=== PATIENT | male | born 1950 | race Two or more races ===

== ENCOUNTER 2022-03-27 16:48 | Observation (INO) ==
--- NOTE | 2022-03-27 20:42 | History & Physical Report ---
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 with concern for choledocholithiasis after originally presenting to OSH with right-sided rib pain due to a mechanical fall. Hyperbilirubinemia, transaminitis, leukocytosis, colorectal carcinoma with liver and lung mets Patient noted with hyperbilirubinemia to 9.2 and AlkPhos of 462 at OSH, in the setting of known liver mets, transferred to [facility] for GI consult and possible MRCP d/t concern for choledocholithiasis CT a/p (performed and read at OSH) notable for extensive hepatic metastatic disease, cholelithiasis; request placed for OSH images to be uploaded and overread by [facility] radiologist in the AM Mild-moderate upper abdominal tenderness on exam On arrival to [facility], labs notable for WBC 73.7, Hgb 9.7, INR 1.7, Ca 7.8 (ion ized pending), phos 1.6, Tbili 9.8, AST 57, AlkPhos 392, albumin 2.7 Lactate level unable to be performed due to lab interference from hyperbilirubinemia Blood cultures drawn prior to antibiotic initiation, result pending GI consulted, recommendations appreciated Oncology consulted, recommendations appreciated Receives chemotherapy every other week (last done about five days ago) managed by a [facility] oncologist Continue empiric vanc/zosyn Trend daily CBC, CMP, PT/INR Rib pain secondary to mechanical fall Patient with mild right-sided chest wall tenderness after a mechanical fall at home yesterday (03/26) No acute fracture identified on imaging at OSH; repeat CXR ordered Pain control with patient's home oxycodone 5mg q6h prn; avoid tylenol d/t hepatic pathology Incentive spirometry ordered Atrial fibrillation Patient tachycardic to the 110s on admission EKG showing atrial fibrillation with RVR without overt sign of ischemia Continue home eliquis, atenolol After admission, patient was still in RVR despite receiving evening dose of atenolol; additional atenolol 100mg x1 given hsTroponin pending Hypophosphatemia Phosphate 1.6 on admission Potassium phosphate monobasic w/ sodium ordered, 1 tab qid Trend phos level HTN BP well-controlled on admission Given the risk of hypotension with the additional atenolol dose (above), will hold home quinapril and lasix for now Continue home spironolactone DM2 Last HbA1c unknown, repeat level ordered Patient's home regimen held on admission Continue BSG checks, sliding-scale insulin, hypoglycemic protocol HLD: not on a statin; lipid profile ordered FERNANDO: not on CPAP/BiPAP at home FEN: NPO at midnight pending GI workup Code status: DNR/DNI DVT ppx: home eliquis Held home meds: lasix, quinapril, metformin, alendronate Consults: gastroenterology, oncology PT/OT: ordered Dispo: med/surg telemetry; low threshold for upgrading to PCU if any instability (2) Colorectal carcinoma: (3) Liver metastases: (4) Lung metastases: (5) Type 2 diabetes mellitus: (6) Atrial fibrillation: (7) Hypertension: (8) Hyperlipidemia: (9) Obstructive sleep apnea: Admission and Anticipated Discharge Date Admission Date: March 27, 2022 History of Present Illness Primary Care Provider: NO PCP 71yo male with a history of colorectal carcinoma with mets to the lung and liver (chemo q other week), atrial fibrillation (on eliquis), HTN, HLD, T2DM, and FERNANDO presents as a transfer from [facility] with concern for choledocholithiasis after originally presenting to OSH with right-sided rib pain due to a mechanical fall. Patient was sitting at the edge of his bed yesterday when he slid down and fell on his right side. No head trauma or LOC. Patient has had right-sided rib pain since. Pain is worse with movement and does not radiate. Some mild pain with inspiration. Also endorses some mild upper abdominal pain which is not new. Denies other symptoms at this time including fever, chills, headache, changes in vision, CP, SOB, nausea, vomiting, co nstipation, diarrhea, lightheadedness, dizziness, numbness, tingling, or weakness. Patient originally presented to [facility], where patient's workup was notable for Tbili of 9.2, AlkP 462, WBC 15, and lactate 2.6. Patient was transferred to [facility] for GI consult and possible MRCP after imaging was suspicious for choledocholithiasis. Patient was placed on vanc/zosyn prior to t ransfer. CT c-spine: no acute fracture US abdomen: heterogenous liver with innumerable hyperechoic masses consistent with mets CT a/p: extensive hepatic metastatic disease, cholelithiasis CT chest: extensive bilateral pulmonary mets, trace BL pleural effusions, scattered ground glass opacities in right perihilar region and right upper lobe which may be related to inflammatory pneumonitis and/or infectious pneumonia CT head: no acute intracranial pathology CXR: diffuse bilateral interstitial and alveolar airspace opacities Patient's current malignancy is managed by an oncologist at [facility]. Allergies Allergy/AdvReac Type Severity Reaction Status Date / Time No Known Allergies Allergy Verified 03/27/22 22:32 Home Medications Medication Instructions Recorded Confirmed Type alendronate 70 mg tablet mg PO 03/27/22 History allopurinol 100 mg tablet mg 03/27/22 History apixaban 5 mg tablet (Eliquis) mg BID 03/27/22 History atenolol 100 mg tablet mg 03/27/22 History esomeprazole magnesium 40 mg mg 03/27/22 History capsule,delayed release furosemide 40 mg tablet mg 03/27/22 History metformin 500 mg tablet,extended mg PO 03/27/22 History release 24 hr oxycodone 5 mg tablet mg 03/27/22 History quinapril 20 mg tablet mg 03/27/22 History spironolactone 25 mg tablet mg 03/27/22 History Past Med/Surg History Social History Smoking Status: Never smoker Hx Alcohol Use: Yes (Quit 2013) Hx Substance Use: No Preferred Language: Frisian Communication Ability: Effective Aerospace Physiological Technician Required: No Beliefs That Will Affect Care: None Current Living Situation: Spouse Feels Safe at Home: Yes Assistive Devices: Walker Physical Exam Physical Exam: Constitutional: well-appearing, no acute distress HEENT: NCAT, mild scleral icterus appreciated CV: tachycardic, irregular rhythm, no murmur appreciated, extremities well- perfused, 1+ pitting edema Resp: CTABL, no wheezes/rales/rhonchi appreciated, no increased work of breathing GI: soft, nondistended, mild-moderate tenderness of the RUQ, LUQ, and epigastrium, no RLQ or LLQ tenderness, BS present MSK: no gross deformities appreciated Skin: warm, dry, no rash appreciated Neuro: alert, oriented, no focal neurologic deficit appreciated Supervising Physician Co-Signing Physician Notes Attending addendum: I have physically seen this patient, have supervised the medical residents activities, and agree with the H&P unless as otherwise noted. Assessment and Plan: Hyperbilirubinemia/transaminitis/metastatic liver disease- Patient accepted in transfer from outside hospital for assessment regarding elevated bilirubin for possible MRCP and concerns regarding choledocholithiasis N.p.o. Significantly elevated white blood cell count 73.7 Follow culture results Empiric antibiotic coverage with vancomycin and Zosyn IV Order MRCP Not likely candidate for surgery, and would likely need a cholecystostomy tube if gallbladder is infected Follow serial laboratories Colorectal carcinoma with metastatic disease to liver and lung- Follows with [facility] [place] oncology Atrial fibrillation with RVR- Optimize potassium magnesium Negative inotropes as noted Giving IV digoxin Continue anticoagulation, changing Eliquis to heparin Remaining orders and notations as noted Resident Activity Tracking Resident Involvement: 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
[2022-03-27] MEDS ORDERED: GLUCOSE 10 TAB/TUBE PO PRN (21:32)
[2022-03-27] MEDS ORDERED: DEXTROSE 50% 50 ML SYRINGE IV PRN (21:32)
[2022-03-27] MEDS ORDERED: CARBOHYDRATES FOR HYPOGLYCEMIA PO PRN (21:32)
[2022-03-27] MEDS ORDERED: GLUCAGON FOR INJ 1 MG VIAL SQ PRN (21:32)
[2022-03-27] MEDS ORDERED: GLUCOSE 40% GEL 15 GM TUBE PO PRN (21:32)
[2022-03-27] MEDS ORDERED: APIXABAN 5 MG TABLET PO SCH (22:00)
[2022-03-27] MEDS ORDERED: Patient's ALLERGY Info needs ENTERED SCH (22:00)
[2022-03-27] MEDS ORDERED: Patient's HEIGHT &/or WEIGHT Needed SCH (22:45)
[2022-03-27] MEDS: ATENOLOL 50 MG TABLET PO SCH (23:32)
[2022-03-27] MEDS: oxyCODONE HCL IR 5 MG TAB (IMMEDIATE RELEASE) PO PRN (23:35)
[2022-03-28 01:22] LABS: INR 1.7 (0.9-1.1); Prothrombin Time 17.2 Seconds (9.0-12.0)
[2022-03-28 01:38] LABS: Albumin Level 2.7 gm/dl (3.4-5.0); BUN Creatinine Ratio 24.3 (10-20); Bilirubin,Total 9.8 mg/dl (0.2-1.0); Calcium 7.8 mg/dl (8.5-10.1); Creatinine Clr Calc Pharmacy 78.8 ml/min; Est GFR (African American) 81.7 ml/min; Est GFR (Non-African American) 70.5 ml/min; Globulin 2.6 gm/dl (2.5-4.0); Magnesium 1.9 mg/dl (1.7-2.4); Phosphorus 1.6 mg/dl (2.5-4.9); Potassium 3.6 mmol/L (3.5-5.1); Total Protein 5.3 gm/dl (6.0-8.3)
[2022-03-28] MEDS ORDERED: ATENOLOL 50 MG TABLET PO ONE (01:39)
[2022-03-28] MEDS ORDERED: LORazepam 1 MG TAB PO STA (01:40)
[2022-03-28] MEDS ORDERED: VANCOMYCIN CONSULT ACTIVE PRN ×2 (01:49)
[2022-03-28 01:50] LABS: Hematocrit (blood only) 30.9 % (42-52); Hemoglobin 9.7 g/dL (14.0-18.0); Mean Corpuscular Hgb Conc 31.4 g/dL (32-36); Mean Corpuscular Volume 89.3 fL (80-100); Mean Platelet Volume 10.2 fL (7.4-10.4); Platelet Count 130 K/uL (130-400); RDW Coefficient of Variation 22.6 % (11.5-14.5); RDW Standard Deviation 71.5 fL (36.4-46.3); Red Blood Count 3.46 M/uL (4.7-6.1); White Blood Count 73.67 K/uL (4.8-10.8)
[2022-03-28 01:51] LABS: Anisocytosis Present; Basophils # (auto) 0.04 K/uL (0-0.2); Basophils % (auto) 0.1 %; Eosinophils # (auto) 0.01 K/uL (0-0.5); Immature Granulocytes # (auto) 3.96 K/uL (0.00-0.02); Immature Granulocytes % (auto) 5.4 %; Lymphocytes # (auto) 0.39 K/uL (1.2-3.4); Lymphocytes % (auto) 0.5 %; Monocytes # (auto) 0.35 K/uL (0.11-0.59); Monocytes % (auto) 0.5 %; Neutrophils # (auto) 68.92 K/uL (1.4-6.5); Neutrophils % (auto) 93.5 %; Platelet Estimate Normal (Normal)
[2022-03-28] MEDS ORDERED: PIPERACILLIN/TAZOBACTAM 3.375 GM in DEXTROSE 5% 100 ML IV SCH (02:00)
[2022-03-28] MEDS ORDERED: HEPARIN 100 UNIT/ML 5ML FLUSH FLUSH PRN (02:14)
[2022-03-28] MEDS ORDERED: VANCOMYCIN HCL 2,250 MG in SODIUM CHLORIDE 0.9% 500 ML IV ONE (02:15)
[2022-03-28] MEDS ORDERED: PIPERACILLIN/TAZOBACTAM 4.5 GM in DEXTROSE 5% 100 ML IV ONE (02:15)
[2022-03-28] MEDS: POT PHOSPHATE MONOBASIC W/ SOD TAB PO SCH ×5 (02:40→20:16)
[2022-03-28] MEDS ORDERED: POTASSIUM CHLORIDE / WTR 10 MEQ/100 ML PLCT IV ONE (04:13)
[2022-03-28] MEDS ORDERED: POTASSIUM CHLORIDE CRTAB 20 MEQ TABCR PO STA (04:13)
[2022-03-28] MEDS ORDERED: POTASSIUM PHOS 3 MMOL/1 ML INFUSION IV STA (04:13)
[2022-03-28] MEDS ORDERED: DIGOXIN 250 MCG in SYRINGE 9 ML IV ONE (04:15)
[2022-03-28] MEDS ORDERED: MoRPHine SULFATE 2 MG/ML CARP IV STA (04:20)
[2022-03-28 04:55] LABS: INR 1.6 (0.9-1.1); Prothrombin Time 16.6 Seconds (9.0-12.0)
[2022-03-28] MEDS ORDERED: POTASSIUM PHOSPHATE 30 MMOL in SODIUM CHLORIDE 0.9% 500 ML IV ONE (05:00)
[2022-03-28 05:29] LABS: Hematocrit (blood only) 31.7 % (42-52); Hemoglobin 9.8 g/dL (14.0-18.0); Mean Corpuscular Hemoglobin 27.8 pg (25-34); Mean Corpuscular Hgb Conc 30.9 g/dL (32-36); Mean Corpuscular Volume 89.8 fL (80-100); Mean Platelet Volume 10.7 fL (7.4-10.4); Platelet Count 138 K/uL (130-400); RDW Coefficient of Variation 22.8 % (11.5-14.5); Red Blood Count 3.53 M/uL (4.7-6.1); White Blood Count 71.59 K/uL (4.8-10.8)
[2022-03-28 05:30] LABS: Anisocytosis Present; Basophils # (auto) 0.06 K/uL (0-0.2); Basophils % (auto) 0.1 %; Dohle Bodies 2+; Echinocytes 1+; Eosinophils # (auto) 0.02 K/uL (0-0.5); Hypochromasia Present; Immature Granulocytes % (auto) 5.4 %; Lymphocytes % (auto) 0.6 %; Monocytes # (auto) 0.42 K/uL (0.11-0.59); Monocytes % (auto) 0.6 %; Neutrophils # (auto) 66.79 K/uL (1.4-6.5); Neutrophils % (auto) 93.3 %; Platelet Estimate Decreased (Normal); Toxic Granulation 1+
[2022-03-28] MEDS ORDERED: OPTIRAY 320 125ml IV ONE (06:46)
[2022-03-28 07:01] LABS: BUN Creatinine Ratio 22.6 (10-20); Calcium 7.9 mg/dl (8.5-10.1); Creatinine Clr Calc Pharmacy 79.8 ml/min; Est GFR (African American) 82.6 ml/min; Est GFR (Non-African American) 71.3 ml/min; Potassium 3.3 mmol/L (3.5-5.1)
[2022-03-28 07:02] LABS: Albumin Level 2.6 gm/dl (3.4-5.0); Bilirubin,Total 9.9 mg/dl (0.2-1.0); Globulin 2.6 gm/dl (2.5-4.0); Total Protein 5.2 gm/dl (6.0-8.3)
[2022-03-28] MEDS ORDERED: INSULIN ASPART PER UNIT SC SCH (07:30)
--- NOTE | 2022-03-28 08:07 | CT Scan Report ---
CT angio chest PE protocol CLINICAL HISTORY: PE TECHNIQUE: Multidetector row helical CT of the chest was performed with angiographic protocol. Maddox l and sagittal reformations were obtained. Coronal and sagittal MIPS were obtained from the axial chilo a set and were submitted for review. Automated dose lowering techniques and/or adjustment according to patient size were utilized for this exam. CT DOSE: 671.39 mGy.cm Comparison: Comparison is made to chest radiograph 03/27/2022 FINDINGS: Lungs and pleura: Innumerable nodular densities are seen throughout the lungs. There are small bilate ral pleural effusions with associated atelectasis. A few groundglass foci are seen. Heart and pericardium: There is cardiomegaly without evidence of pericardial effusion. Vessels: No evidence of pulmonary embolism. Mediastinum and caitie: Subcentimeter lymph nodes are seen. Chest wall and lower neck: No evidence Abdomen: There is suggestion of inhomogeneity throughout the liver. Bones: Degenerative changes in the thoracic spine. IMPRESSION: 1. No evidence of pulmonary embolism. 2. Innumerable nodular densities are seen throughout the lung concerning for metastatic disease of u nknown primary. 3. Small bilateral pleural effusions. 4. Groundglass foci may represent infectious/inflammatory process or developing nodules. 5. There is suggestion of hypodensities in the liver, this may be artifactual, however hepatic metas tatic disease cannot be excluded. ACT 112: Negative or not required by law. Electronically signed by: Dat Garcia M.D. 03/28/2022 8:05 AM
--- NOTE | 2022-03-28 08:09 | XRay Report ---
XR chest 1V portable CLINICAL HISTORY: rib pain 2/2 fall TECHNIQUE: Single frontal radiograph of the chest was obtained. Comparison: None available at the time of this dictation. FINDINGS: A right port catheter is seen. The cardiomediastinal silhouette is normal. Numerous nodular densities are seen in the lungs. There are scattered airspace opacities. No evidence of pleural effusion or pn eumothorax. IMPRESSION: Numerous nodular densities are seen in the lung compatible with metastatic disease. Multifocal airspa ce disease is seen which may represent atelectasis, pneumonia, and/or aspiration. ACT 112: Negative or not required by law. Electronically signed by: Dat Garcia M.D. 03/28/2022 8:08 AM
--- NOTE | 2022-03-28 08:13 | Hospitalist Progress Note ---
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 Colorectal carcinoma with liver and lung mets Patient noted with hyperbilirubinemia to 9.2 and AlkPhos of 462 at OSH, in the setting of known liver mets, transferred to [facility] for GI consult and possible MRCP d/t concern for choledocholithiasis CT a/p (performed and read at OSH) notable for extensive hepatic metastatic disease, cholelithiasis imaging to be transfered to [facility] for overread Receives chemotherapy q2wks (last done Tuesday) managed by a [facility] oncologist Mild-moderate upper abdominal tenderness on exam -WBC and total bilirubin grossly elevated, likely leukemoid reaction but will obtain consult Oncology consulted, recommendations appreciated Hyperbilirubinemia, transaminitis, leukocytosis, Mild-moderate upper abdominal tenderness on exam CT a/p (performed and read at OSH) notable for extensive hepatic metastatic disease, cholelithiasis On arrival to [facility], labs notable for WBC 73.7, Hgb 9.7, INR 1.7, Ca 7.8 (ionized pending), phos 1.6, Tbili 9.8, AST 57, AlkPhos 392, albumin 2.7 Lactate level unable to be performed due to lab interference from hyperbilirubinemia Blood cultures pending GI consulted, recommendations appreciated Continue empiric vanc/zosyn Trend daily CBC, CMP, PT/INR Rib pain secondary to mechanical fall Patient with mild right-sided chest wall tenderness after a mechanical fall at home yesterday (03/26) No acute fracture on CXR - chest CTA no PE, no body mets. Innumerable nodular densities are seen throughout the lung concerning for metastatic disease, Small bilateral pleural effusions. Groundglass foci may represent infectious/inflammatory process or developing nodules. Pain control with patient's home oxycodone 5mg q6h prn; avoid tylenol d/t hepa tic pathology Incentive spirometry ordered -lidocaine patch ordered Atrial fibrillation Patient tachycardic to the 110s on admission EKG showing atrial fibrillation with RVR -recieved home atenolol with additional 100mg atenolol, digoxin 250mcg Continue home atenolol hsTroponin 53.8, continue to trend -hold home eliquis, started heparin drip given elevated troponins possible demand ischemia -Echo normal EF, moderate concentric LVH, RA LA mildly dilated, elevated right systolic pressure -started IVF NSS bolus 1L Hypophosphatemia Phosphate 1.6 on admission Potassium phosphate monobasic w/ sodium ordered, 1 tab qid Trend phos level Anxiety -received 1mg ativan without improvement -improved with morphine HTN BP well-controlled on admission Given the risk of hypotension with the additional atenolol dose (above), will hold home quinapril and lasix for now Continue home spironolactone DM2 Last HbA1c unknown, repeat level ordered Patient's home regimen held on admission Continue BSG checks, sliding-scale insulin, hypoglycemic protocol HLD: not on a statin; lipid profile wnl FERNANDO: not on CPAP/BiPAP at home FEN: NPO at midnight pending GI workup Code status: DNR/DNI DVT ppx: home eliquis Held home meds: lasix, quinapril, metformin, alendronate Consults: gastroenterology, oncology PT/OT: ordered Dispo: PCU (2) Colorectal carcinoma: (3) Liver metastases: (4) Lung metastases: (5) Type 2 diabetes mellitus: (6) Atrial fibrillation: (7) Hypertension: (8) Hyperlipidemia: (9) Obstructive sleep apnea: Admission and Anticipated Discharge Date Admission Date: March 27, 2022 Supervising Physician Co-Signing Physician Notes I personally examined the patient and verified all jane points of history and exam, discussed case, and agree with decision making with Dr Jaimes. Feeling okay. Mostly just tired. Notes that he does not normally need oxygen, and may be his breathing is a little bit worse recently than it had been before. Otherwise just has his right lower chest pain where he hit his chest wall falling. No other chest pain or shortness of breath, no fevers chills or sweats, no cough no sputum. GI symptoms are nil Vitals noted, in general he is fatigued but easily awoken no distress. HEENT normocephalic atraumatic mucous membranes moist. Lungs show fairly diminished breath sounds throughout worse at the bases fairly hard to hear overall despite amplification and good effort. Chest wall is tender over the right lower lateral ribs, right upper abdomen is not at all tender no guarding rebound or rigidity. Remainder of abdomen seems to be benign. Extremities without edema, no calf tenderness. Neuro without focal deficits. Skin he looks both ashen and a little bit jaundiced. Mental status shows good recent and remote recall normal mood and affect good judgment and insight. Jaundicetransferred to this hospital for GI eval for possible ERCP. Unfortunately at this point gastroenterology and I both agree that it really seems to be a picture of metastatic disease not biliary obstruction. [facility] in lines of treatment or thinking towards palliative/hospice, but definitely will need to facilitate close follow-up with his regular digital court reporter. Marked leukocytosison review of his labs from [facility], on 03/26 his white count was about 16, 03/22 5 in the AM 59, and the rest of the labs are noted here. All are automated differential and all show significant left shift without any noted atypia. Given his worsening breathing new oxygen requirement and CT findingsI suspect he has multiple foci of postobstructive pneumonia leading to a reactive leukocytosis, and this, combined with his diffusely metastatic cancer (especially the liver mets) likely are leading to a leukemoid reaction. This was discussed with hematology cross coverage who agreed this was likely the case, and did not feel any acute crises were looming. Given his immune compromised state and marked leukocytosis, fungal cultures have been added, and a peripheral smear is pending. Continue vancomycin and Zosyn for nowparticularly given that he was on vancomycin and cefepime at [facility] with worsening of his white count. Is currently on a heparin drip instead of his apixaban for stroke prophylaxis/DVT prophylaxis (stroke prophylaxis for his A. fib) and with his A. fib his rate is under reasonable control. Dispositionwill remain inpatient till the situation stabilizes more. However, I suspect that will largely be treating the obstructive pneumonias, following for any other signs of infection, and then working towards either discussion of goals of care here, or facilitating discussion of this with his regular digital court reporter/oncologist. Subjective 71yo Male PMH colorectal cancer dx 2019 with mets to liver and lung, afib, DM2, HTH, HLD, FERNANDO was admited to [facility] for a fall where he landed on his right side, described pain on his right rib and abdomen that radiated to his epigastric region. Patient stated he required transfer because that medical center did not have an machine bookkeeper. Patient states at this time he only has pain on his rightrib and abdomen on palpation, otherwise in no acute distress. His last chemo therapy was last tuesday. Patient states he is on a baseline of 2L oxygen at night at home. Review of Systems Review of Systems: Negative fever chills Negative headache dizziness Negative chest pain palpitations SOB Negative nausea vomitting diarrhea constipation Negative numbness tingling rash swelling Physical Exam Constitutional: WD/WN, vitals as above Eyes: normal visual leiva by confrontation, + scleral abnormality (icteric), PERRL and EOM intact bilaterally ENMT: external ear and nose normal, oropharynx normal Neck: trachea midline, no thyromegaly Respiratory: normal respiratory effort, lungs clear to auscultation Cardiovascular: Rate/Rhythm: + irregularly irregular Heart Sounds: normal S1 and normal S2 Extremities: + edema (+1 pitting edema b/l ankles with chronic venous stasis) Chest (Breasts): Chest: + vascular access device or port (on left) Gastrointestinal (Abdomen): Inspection/Auscultation: abdomen normal to inspection and normal bowel sounds Percussion/Palpation: + abdomen tender (at RUQ and epigastric) and abdomen soft; no ascites Skin: no rashes, warm and dry Neurologic: CN's II-XI intact bilaterally Results & Data Results & Data ([facility]) Vital Signs (Past 12 Hours) Vital Signs Temp Pulse Pulse Resp BP Pulse Ox 03/28/22 07:46 37.2 C 95 H 18 128/80 91 03/28/22 05:27 122 H 03/28/22 02:21 37.6 C H 115 H 18 117/77 95 03/27/22 22:32 37.5 C 112 H 18 125/80 98 03/27/22 22:18 109 H Diagnostic Findings Laboratory Results WBC 71.59 K/uL (4.8-10.8) H* 03/28/22 04:14 RBC 3.53 M/uL (4.7-6.1) L 03/28/22 04:14 Hgb 9.8 g/dL (14.0-18.0) L 03/28/22 04:14 Hct 31.7 % (42-52) L 03/28/22 04:14 MCV 89.8 fL (80-100) 03/28/22 04:14 MCH 27.8 pg (25-34) 03/28/22 04:14 MCHC 30.9 g/dL (32-36) L 03/28/22 04:14 RDW Std Deviation 73.0 fL (36.4-46.3) H 03/28/22 04:14 RDW Coeff of Yenni 22.8 % (11.5-14.5) H 03/28/22 04:14 Plt Count 138 K/uL (130-400) 03/28/22 04:14 MPV 10.7 fL (7.4-10.4) H 03/28/22 04:14 Immature Gran % (Auto) 5.4 % 03/28/22 04:14 Neut % (Auto) 93.3 % 03/28/22 04:14 Lymph % (Auto) 0.6 % 03/28/22 04:14 [place] % (Auto) 0.6 % 03/28/22 04:14 Eos % (Auto) 0.0 % 03/28/22 04:14 Baso % (Auto) 0.1 % 03/28/22 04:14 Neut # (Auto) 66.79 K/uL (1.4-6.5) H 03/28/22 04:14 Lymph # (Auto) 0.40 K/uL (1.2-3.4) L 03/28/22 04:14 [place] # (Auto) 0.42 K/uL (0.11-0.59) 03/28/22 04:14 Eos # (Auto) 0.02 K/uL (0-0.5) 03/28/22 04:14 Baso # (Auto) 0.06 K/uL (0-0.2) 03/28/22 04:14 Immature Gran # (Auto) 3.90 K/uL (0.00-0.02) H 03/28/22 04:14 Blood Smear Review Cancelled 03/28/22 00:44 Toxic Granulation 1+ 03/28/22 04:14 Dohle Bodies 2+ 03/28/22 04:14 Platelet Estimate Decreased (Normal) L 03/28/22 04:14 Hypochromasia Present 03/28/22 04:14 Anisocytosis Present 03/28/22 04:14 Echinocytes 1+ 03/28/22 04:14 PT 16.6 Seconds (9.0-12.0) H 03/28/22 04:14 INR 1.6 (0.9-1.1) H 03/28/22 04:14 Sodium 136 mmol/L (136-145) 03/28/22 04:14 Potassium 3.3 mmol/L (3.5-5.1) L 03/28/22 04:14 Chloride 102 mmol/L (98-107) 03/28/22 04:14 Carbon Dioxide 27 mmol/L (21-32) 03/28/22 04:14 Anion Gap 7 (3-11) 03/28/22 04:14 BUN 24 mg/dl (6-23) H 03/28/22 04:14 Creatinine 1.06 mg/dl (0.6-1.4) 03/28/22 04:14 Est Cr Clr Drug Dosing 79.8 ml/min 03/28/22 04:14 Est GFR ( Amer) 82.6 ml/min 03/28/22 04:14 Est GFR (Non-Af Amer) 71.3 ml/min 03/28/22 04:14 BUN/Creatinine Ratio 22.6 (10-20) H 03/28/22 04:14 Glucose 113 mg/dl (70-99(Fasting)) H 03/28/22 04:14 POC Glucose 115 mg/dl (70-99) H 03/28/22 11:42 Lactate TNP 03/27/22 22:30 Calcium 7.9 mg/dl (8.5-10.1) L 03/28/22 04:14 Ionized Calcium 1.08 mmol/L (1.12-1.32) L 03/28/22 02:21 Phosphorus 1.6 mg/dl (2.5-4.9) L 03/28/22 00:44 Magnesium 1.9 mg/dl (1.7-2.4) 03/28/22 00:44 Total Bilirubin 9.9 mg/dl (0.2-1.0) H 03/28/22 04:14 AST 54 U/L (13-39) H 03/28/22 04:14 ALT 46 U/L (7-52) 03/28/22 04:14 Alkaline Phosphatase 387 U/L (34-104) H 03/28/22 04:14 Troponin I High Sens 53.8 pg/ml (0-20) H* 03/28/22 04:14 Total Protein 5.2 gm/dl (6.0-8.3) L 03/28/22 04:14 Albumin 2.6 gm/dl (3.4-5.0) L 03/28/22 04:14 Globulin 2.6 gm/dl (2.5-4.0) 03/28/22 04:14 Albumin/Globulin Ratio 1.0 (0.9-2) 03/28/22 04:14 Triglycerides 94 mg/dl (0-150) 03/28/22 04:14 Cholesterol mg/dl (0-200) 03/28/22 04:14 LDL Cholesterol, Calc mg/dl 03/28/22 04:14 VLDL Cholesterol, Calc 19 mg/dl (0-30) 03/28/22 04:14 HDL Cholesterol 12 mg/dl 03/28/22 04:14 Cholesterol/HDL Ratio (0-5) 03/28/22 04:14 Lipase 5 U/L (11-82) L 03/27/22 22:30 Nasal Screen MRSA (PCR) Negative (Negative) 03/28/22 10:43 Impressions Chest X-Ray 03/27/22 23:19 XR chest 1V portable CLINICAL HISTORY: rib pain 2/2 fall TECHNIQUE: Single frontal radiograph of the chest was obtained. Comparison: None available at the time of this dictation. FINDINGS: A right port catheter is seen. The cardiomediastinal silhouette is normal. Numerous nodular densities are seen in the lungs. There are scattered airspace opacities. No evidence of pleural effusion or pneumothorax. IMPRESSION: Numerous nodular densities are seen in the lung compatible with metastatic disease. Multifocal airspace disease is seen which may represent atelectasis, pneumonia, and/or aspiration. ACT 112: Negative or not required by law. Electronically signed by: Dat Garcia M.D. 03/28/2022 8:08 AM Chest CTA 03/28/22 04:17 CT angio chest PE protocol CLINICAL HISTORY: PE TECHNIQUE: Multidetector row helical CT of the chest was performed with angiographic protocol. Coronal and sagittal reformations were obtained. Coronal and sagittal MIPS were obtained from the axial data set and were submitted for review. Automated dose lowering techniques and/or adjustment according to patient size were utilized for this exam. CT DOSE: 671.39 mGy.cm Comparison: Comparison is made to chest radiograph 03/27/2022 FINDINGS: Lungs and pleura: Innumerable nodular densities are seen throughout the lungs. There are small bilateral pleural effusions with associated atelectasis. A few groundglass foci are seen. Heart and pericardium: There is cardiomegaly without evidence of pericardial effusion. Vessels: No evidence of pulmonary embolism. Mediastinum and caitie: Subcentimeter lymph nodes are seen. Chest wall and lower neck: No evidence Abdomen: There is suggestion of inhomogeneity throughout the liver. Bones: Degenerative changes in the thoracic spine. IMPRESSION: 1. No evidence of pulmonary embolism. 2. Innumerable nodular densities are seen throughout the lung concerning for metastatic disease of unknown primary. 3. Small bilateral pleural effusions. 4. Groundglass foci may represent infectious/inflammatory process or developing nodules. 5. There is suggestion of hypodensities in the liver, this may be artifactual, however hepatic metastatic disease cannot be excluded. ACT 112: Negative or not required by law. Electronically signed by: Dat Garcia M.D. 03/28/2022 8:05 AM Medications Administered Current Inpatient Medications Allopurinol (Allopurinol 100 Mg Tab) 100 mg PO DAILY YI Stop: 04/27/22 08:59 Last Admin: 03/28/22 10:15 Dose: 100 mg Documented by: Atenolol (Atenolol 50 Mg Tablet) 100 mg PO BID YI Stop: 04/26/22 22:44 Last Admin: 03/28/22 10:15 Dose: 100 mg Documented by: Dextrose (Dextrose 50% 50 Ml Syringe) 25 - 50 ml IV UD PRN; Protocol PRN Reason: Hypoglycemia Protocol Stop: 04/26/22 21:31 Glucagon (Glucagon For Inj 1 Mg Vial) 1 mg SQ UD PRN; Protocol PRN Reason: Hypoglycemia Protocol Stop: 04/26/22 21:31 Glucose (Glucose 10 Tabs/Tube) 4 - 8 tabs PO UD PRN; Protocol PRN Reason: Hypoglycemia Protocol Stop: 04/26/22 21:31 Glucose (Glucose 40% Gel 15 Gm Tube) 15 - 30 gm PO UD PRN; Protocol PRN Reason: Hypoglycemia Protocol Stop: 04/26/22 21:31 Heparin Sodium (Porcine) (Heparin 100 Unit/Ml 5ml Flush) 5 ml FLUSH PRN PRN PRN Reason: Flush Stop: 04/27/22 02:13 Piperacillin Sod/Tazobactam (Sod 4.5 gm/ Dextrose) 120 mls @ 30 mls/hr IV Q8H YI; Protocol Stop: 03/30/22 07:59 Last Admin: 03/28/22 10:14 Dose: 30 mls/hr Documented by: Heparin Sodium/Dextrose (Heparin Sodium/Dextrose) 25,000 units in 500 mls @ 20 mls/hr IV .Q24H YI; Protocol Stop: 04/27/22 08:59 Last Admin: 03/28/22 10:44 Dose: 1,000 units/hr, 20 mls/hr Documented by: Vancomycin HCl 1,000 mg/ (Sodium Chloride) 270 mls @ 200 mls/hr IV Q12H [facility] Stop: 03/30/22 12:59 Insulin Aspart (Insulin Aspart Per Unit) 0 units SC Q6 [facility] Stop: 04/27/22 11:59 Last Admin: 03/28/22 11:47 Dose: Not Given Documented by: Lidocaine (Lidocaine 5% 1 Patch) 1 patch TD QAM [facility] Stop: 04/27/22 08:59 Last Admin: 03/28/22 10:16 Dose: 1 patch Documented by: Melatonin (Melatonin 3 Mg Tab) 3 mg PO HS PRN PRN Reason: Sleep Stop: 04/26/22 21:46 Miscellaneous (Carbohydrates For Hypoglycemia ) 15 - 30 gm PO UD PRN PRN Reason: Hypoglycemia Protocol Stop: 04/26/22 21:31 Miscellaneous (Remove Lidoderm Patch) 1 ea N/A DAILY@2100 [facility] Stop: 04/27/22 20:59 Miscellaneous Information (Vancomycin Consult Active) 1 ea N/A UD PRN PRN Reason: Consult Stop: 04/27/22 01:48 Oxycodone HCl (Oxycodone Hcl Ir 5 Mg Tab (Immediate Release)) 5 mg PO Q6H PRN PRN Reason: Pain Stop: 04/10/22 21:52 Last Admin: 03/27/22 23:35 Dose: 5 mg Documented by: Pantoprazole Sodium (Pantoprazole 40 Mg Tab) 40 mg PO QAM [facility] Stop: 04/27/22 08:59 Last Admin: 03/28/22 10:16 Dose: 40 mg Documented by: Potassium Phosphate (Pot Phosphate Monobasic W/ Sod Tab) 1 tab PO QID [facility] Stop: 04/27/22 01:49 Last Admin: 03/28/22 10:17 Dose: 1 tab Documented by: Spironolactone (Spironolactone 25 Mg Tab) 25 mg PO QAM [facility] Stop: 04/27/22 08:59 Last Admin: 03/28/22 10:17 Dose: 25 mg Documented by: Resident Activity Tracking Resident Involvement: Resident Care Provided Care Provided: Adult Hospital Medicine
--- NOTE | 2022-03-28 10:09 | Pharmacy Report ---
Pharmacy PK ABX Note - Date of Service March 28, 2022 - Assessment and Plan Assessment 71 year old M receiving ZOSYN/VANCOMYCIN for empiric treatment- significant leukocytosis (? baseline/recent trauma). History of colorectal cancer w/ mets to liver/lung last chemo ~5 dyas prior. Patient is afebrile, tachycardic, concern for choledocholithiasis, GI consulted, blood cultures pending. Plan Vancomycin * Loading dose: 2250 mg IV x 1 * Maintenance dose: 1000 mg IV every 12 hours * Regimen is predicted to achieve target AUC/MARIANO of 400-600 mg/L.hr * Trough to be ordered if therapy continues greater than 48 hours. Pharmacy will continue to follow and will adjust dose/frequency as necessary. Thank you. Pharmacy has transitioned to AUC monitoring for vancomycin. AUC/MARIANO is the preferred PK/PD target and is associated with decreased risk of nephrotoxicity compared to traditional trough targets.
[2022-03-28] MEDS: PIPERACILLIN/TAZOBACTAM 4.5 GM in DEXTROSE 5% 100 ML IV SCH ×2 (10:14→15:48)
[2022-03-28] MEDS: allopurinoL 100 MG TAB PO SCH (10:15)
[2022-03-28] MEDS: ATENOLOL 50 MG TABLET PO SCH ×2 (10:15→20:16)
[2022-03-28] MEDS: PANTOprazole 40 MG TAB PO SCH (10:16)
[2022-03-28] MEDS: LIDOCAINE 5% 1 PATCH TD SCH (10:16)
[2022-03-28] MEDS: SPIRONOLACTONE 25 MG TAB PO SCH (10:17)
[2022-03-28] MEDS: Heparin IV Adult Wt-Based Low-Dose *NO* Bolus Protocol IV SCH ×3 (10:20→10:22)
[2022-03-28] MEDS ORDERED: Nursing to Pharmacy Communication SCH (10:30)
--- NOTE | 2022-03-28 10:31 | XCELERA ---
[id number]
[2022-03-28] MEDS: HEPARIN SODIUM/DEXTROSE 25,000 UNITS/500 ML BAG IV SCH (10:44)
[2022-03-28] MEDS: INSULIN ASPART PER UNIT SC SCH ×3 (11:47→23:26)
--- NOTE | 2022-03-28 12:32 | Billing Data ---
Date of Service March 28, 2022 Coding Level of Care Code 64925 Initial Inpt Care Lvl 3
[2022-03-28] MEDS ORDERED: SODIUM CHLORIDE 0.9% 500 ML IV SCH (13:00)
[2022-03-28] MEDS ORDERED: SODIUM CHLORIDE 0.9% 1000ML 1,000 ML IV ONE (13:08)
[2022-03-28] MEDS: VANCOMYCIN HCL 1,000 MG in SODIUM CHLORIDE 0.9% 250 ML IV SCH (13:20)
[2022-03-28] MEDS: oxyCODONE HCL IR 5 MG TAB (IMMEDIATE RELEASE) PO PRN (17:50)
[2022-03-28 18:16] LABS: Partial Thromboplastin Ratio 1.7
[2022-03-28 18:20] LABS: Partial Thromboplastin Time 46.1 Seconds (21.0-31.0)
[2022-03-28 20:14] LABS: Partial Thromboplastin Ratio 1.8
[2022-03-28 20:29] LABS: Partial Thromboplastin Time 49.8 Seconds (21.0-31.0)
--- NOTE | 2022-03-28 20:41 | Billing Data ---
Date of Service March 28, 2022 Coding Level of Care Code 00015 Initial Inpt Care Lvl 3
--- NOTE | 2022-03-28 21:01 | Electrocardiogram Report ---
Test Reason : Blood Pressure : / mmHG Vent. Rate : 115 BPM Atrial Rate : 127 BPM P-R Int : 000 ms QRS Dur : 068 ms QT Int : 324 ms P-R-T Axes : 000 003 018 degrees QTc Int : 448 ms Atrial fibrillation with rapid ventricular response Septal infarct , age undetermined Abnormal ECG No previous ECGs available Confirmed by Luis Lehman ([id number]) on 03/28/2022 9:01:02 PM Referred By: Mina Dunn Confirmed By:Luis Lehman
--- NOTE | 2022-03-28 21:06 | Electrocardiogram Report ---
Test Reason : Blood Pressure : / mmHG Vent. Rate : 105 BPM Atrial Rate : 051 BPM P-R Int : 000 ms QRS Dur : 078 ms QT Int : 324 ms P-R-T Axes : 000 006 034 degrees QTc Int : 428 ms Atrial fibrillation with rapid ventricular response Septal infarct (cited on or before 28-MAR-2022) Abnormal ECG When compared with ECG of 28-MAR-2022 01:13, (unconfirmed) No significant change was found Confirmed by Luis Lehman ([id number]) on 03/28/2022 9:05:50 PM Referred By: Mina Dunn Confirmed By:Luis Lehman
--- NOTE | 2022-03-28 22:42 | Consultation Report ---
GASTROENTEROLOGY CONSULTATION ATTENDING PHYSICIAN: Dr. Ramey. REASON FOR CONSULTATION: Elevated T-bili, liver mets on CT scan. HISTORY OF PRESENT ILLNESS: Kody Weinberg is a 71-year-old male who presented to [facility] Department of Emergency Medicine on 03/27 with complaints of rib pain on the right side. He does have a history of colorectal carcinoma with mets to the lung and liver and receives c hemotherapy every other week. He is also noted to have atrial fibrillation, on Eliquis therapy and m efrainle other medical comorbidities who was transferred from [facility] with concerns f or choledocholithiasis. Upon arrival to the Department of Emergency Medicine, he was noted to have a total bilirubin of 9.2 and an alkaline phosphatase of 462. A CT abdomen and pelvis at [facility] wed extensive hepatic metastatic disease and cholelithiasis. He does see a [facility] oncologist a nd received his chemotherapy 5 days ago. He was placed on IV vancomycin and Zosyn therapy after it w as found that he had an elevated white blood cell count of greater than 70. He was admitted and cont inued on IV antibiotics. At the time that I saw the patient, he did complain of some right-sided abd ominal pain. He denied any nausea or vomiting. He states that he has no appetite at present. He de nied any fevers, chills, hematemesis, melena, hematochezia, or diarrhea at present. He attributes hi s right-sided abdominal pain to a fall that he had, which prompted his evaluation at [facility] al to begin with. Though there was no mention of any rib fractures on x-ray or CT imaging, there wer e innumerable nodular densities seen throughout the lung as well as liver metastases. The patient de nies any further complaints. PAST MEDICAL HISTORY: Extensive and includes obstructive sleep apnea, hyperlipidemia, hypertension, atrial fibrillation, type 2 diabetes, colorectal cancer with both lung mets and liver mets. ALLERGIES: None. CURRENT MEDICATIONS: Include allopurinol 100 mg p.o. daily, atenolol 100 mg p.o. b.i.d., heparin 100 0 units per hour, insulin titrated based on blood glucose levels, lidocaine patch 1 patch transdermal ly q.a.m., melatonin 3 mg p.o. at bedtime, oxycodone 5 mg p.o. q.6 p.r.n., Protonix 40 mg p.o. q.a.m. , Zosyn 4.5 grams IV q.8, spironolactone 25 mg p.o. q.a.m., vancomycin 1 gram IV q.12. Eliquis is cu rrently on hold. Digoxin is on hold. SOCIAL HISTORY: He is . He denies any history of tobacco use. He does have a history of alc ohol use, quit though in 2012. No illicit drug use. FAMILY HISTORY: Negative for GI malignancy or inflammatory bowel disease. REVIEW OF SYSTEMS: Negative [id number] review other than pertinent positives listed in the HPI. PHYSICAL EXAMINATION: VITAL SIGNS: Include a temperature of 36.9, respirations 18, blood pressure 132/79, pulse 108, O2 sa t 95% on room air. GENERAL: He is awake and cooperative, chronic ill-appearing, cachectic, notable jaundice. HEAD: Bilateral temporal wasting. CARDIOVASCULAR SYSTEM: Irregularly irregular. CHEST: Decreased breath sounds throughout. ABDOMEN: Soft, tender in the right upper quadrant, slightly distended. Positive bowel sounds. Ther e is no appreciable hepatosplenomegaly. EXTREMITIES: No edema in the bilateral lower extremities. LABORATORY STUDIES: From this morning show a white blood cell count of 71.59, hemoglobin 9.8, hemato crit 31.7, platelet count 138. PT 16.6, INR 1.6. Sodium 136, potassium 3.3, chloride 102, bicarb 27 , BUN 24, creatinine 1.06, glucose 115, calcium 7.9, phosphorus 1.6, total bilirubin 9.9, AST 54, ALT 46, alkaline phosphatase 387. Lipase yesterday was 5. Radiographic studies were reviewed in the HPI. IMPRESSION: A 71-year-old male with colorectal cancer with diffuse metastatic disease to t he liver and lung, who was transferred from an outside hospital for questionable choledocholithiasis. PLAN: At the present time, I would recommend that the patient undergo an MRCP; however, I feel that the most likely cause of the patient's elevated bilirubin is from diffuse metastatic disease to the l iver from tumor burden. I will defer to my colleagues to perform biliary procedures to further evalu ate this patient and make recommendations as to the need for ERCP moving forward, though that will be largely determined by the findings on MRCP which I would recommend. I would continue him on IV anti biotics at present due to his elevated white blood cell count as well as his left shift, and I would continue to try to determine the source for his elevated white count. I would continue supportive ca re. I will also recommend that he follow up with his oncologist back in [place] as well as his home smeller when he is discharged here as his diagnosis of colorectal cancer was not made in o system, and therefore, we do not have any records as to the treatment plan or a timeline as far as his diagnosis and current therapy. I will follow his clinical course and make further recommendatio ns as needed. Once again, thanks for allowing me to participate in the care of this patient. If you have any furth er questions, please do not hesitate in contacting me. Job ID: [id number]
[2022-03-29] MEDS: VANCOMYCIN HCL 1,000 MG in SODIUM CHLORIDE 0.9% 250 ML IV SCH ×3 (01:07→23:56)
[2022-03-29] MEDS: PIPERACILLIN/TAZOBACTAM 4.5 GM in DEXTROSE 5% 100 ML IV SCH ×4 (01:08→23:18)
[2022-03-29] MEDS: oxyCODONE HCL IR 5 MG TAB (IMMEDIATE RELEASE) PO PRN ×3 (02:13→21:09)
[2022-03-29] MEDS: MELATONIN 3 MG TAB PO PRN ×2 (02:13→21:10)
[2022-03-29] MEDS: INSULIN ASPART PER UNIT SC SCH ×3 (06:11→18:20)
[2022-03-29 07:35] LABS: Estimated Average Glucose 126 mg/dl
[2022-03-29 07:37] LABS: Partial Thromboplastin Ratio 1.6; Partial Thromboplastin Time 44.9 Seconds (21.0-31.0)
[2022-03-29 07:49] LABS: Albumin Level 2.5 gm/dl (3.4-5.0); BUN Creatinine Ratio 20.8 (10-20); Bilirubin,Total 11.1 mg/dl (0.2-1.0); Calcium 7.8 mg/dl (8.5-10.1); Est GFR (African American) 82.6 ml/min; Est GFR (Non-African American) 71.3 ml/min; Globulin 2.6 gm/dl (2.5-4.0); Potassium 3.4 mmol/L (3.5-5.1); Total Protein 5.1 gm/dl (6.0-8.3)
[2022-03-29 08:04] LABS: Hematocrit (blood only) 32.2 % (42-52); Mean Corpuscular Hgb Conc 31.1 g/dL (32-36); Mean Corpuscular Volume 90.2 fL (80-100); Mean Platelet Volume 10.3 fL (7.4-10.4); Nucleated RBC # (auto) 0.03 K/uL (0-0); Nucleated RBC % (auto) 0.1 %; Platelet Count 112 K/uL (130-400); RDW Coefficient of Variation 22.4 % (11.5-14.5); RDW Standard Deviation 72.3 fL (36.4-46.3); Red Blood Count 3.57 M/uL (4.7-6.1); White Blood Count 50.49 K/uL (4.8-10.8)
[2022-03-29 08:05] LABS: Anisocytosis Present; Basophils # (auto) 0.02 K/uL (0-0.2); Eosinophils # (auto) 0.05 K/uL (0-0.5); Eosinophils % (auto) 0.1 %; Immature Granulocytes # (auto) 1.07 K/uL (0.00-0.02); Immature Granulocytes % (auto) 2.1 %; Lymphocytes % (auto) 0.6 %; Monocytes # (auto) 0.63 K/uL (0.11-0.59); Monocytes % (auto) 1.2 %; Neutrophils # (auto) 48.42 K/uL (1.4-6.5); Platelet Estimate Decreased (Normal)
[2022-03-29] MEDS: SPIRONOLACTONE 25 MG TAB PO SCH (08:15)
[2022-03-29] MEDS: ATENOLOL 50 MG TABLET PO SCH ×2 (08:15→21:10)
[2022-03-29] MEDS: POT PHOSPHATE MONOBASIC W/ SOD TAB PO SCH ×4 (08:15→21:11)
[2022-03-29] MEDS: PANTOprazole 40 MG TAB PO SCH (08:16)
[2022-03-29] MEDS: LIDOCAINE 5% 1 PATCH TD SCH (08:16)
[2022-03-29] MEDS: allopurinoL 100 MG TAB PO SCH (08:16)
[2022-03-29] MEDS: HEPARIN SODIUM/DEXTROSE 25,000 UNITS/500 ML BAG IV SCH (08:43)
--- NOTE | 2022-03-29 09:56 | Gastroenterology Progress Note ---
Date of Service March 29, 2022 Assessment & Plan (1) Elevated bilirubin: Plan: -Obtain MRCP for further evaluation -Continue to monitor CMP, CBC, PT/INR -Further recommendations pending results of testing -Supportive care primary team Admission and Anticipated Discharge Date Admission Date: March 27, 2022 Supervising Physician Co-Signing Physician Notes Agree with EVARISTO Medel as above MRCP pending Continue current therapy and supportive care. Subjective Patient is a 71 yo male hospitalized with concerns for choledocholithiasis. Patient reports right sided abdominal pain and jaundice. No diarrhea or GI bleeding. No nausea/vomiting. T Bili this AM is 11.1. AST 55, ALT 42, Troponin 49.4. K 3.4. He is awaiting MRCP. Review of Systems Gastrointestinal: + abdominal pain; no change in bowel habits and no diarrhea/loose stools Integumentary: + yellowing of the skin Physical Exam Constitutional: + ill appearing Neck: normal visual inspection Respiratory: normal respiratory effort Cardiovascular: Rate/Rhythm: regular rate Gastrointestinal (Abdomen): Percussion/Palpation: + abdomen tender (RUQ) and abdomen soft Psychiatric: Orientation: alert and oriented x 3 Results & Data Results & Data ([facility]) Vital Signs (Past 12 Hours) Vital Signs Temp Pulse Pulse Resp BP Pulse Ox 03/29/22 07:31 36.9 C 92 H 17 118/78 100 03/29/22 03:08 36.6 C 111 H 20 121/72 100 03/28/22 23:06 36.6 C 112 H 16 124/81 98 03/28/22 23:00 122 H PG Care Time/CCT Total # of Minutes Spent Total Time Spent with Patient: Total time spent is greater than 50% in coordination of care (as documented) at patient's floor/unit and/or counseling patient: Coding Level of Care Code 20368 Subseq Hosp Care Lvl 3 Diagnoses Elevated bilirubin R17
--- NOTE | 2022-03-29 10:49 | Hospitalist Progress Note ---
Date of Service March 29, 2022 Assessment & Plan (1) Rib pain on right side: Plan: 71yo male with a history of colorectal carcinoma with mets to the lung and liver (chemo q other week), atrial fibrillation (on eliquis), HTN, HLD, T2DM, and FERNANDO presents as a transfer from [facility] with concern for choledocholithiasis after originally presenting to OSH with right-sided rib pain due to a mechanical fall. Severe leukocytosis - await oncology input. no obvious sign of infection. Colorectal carcinoma with liver and lung mets with leukocytosis Patient noted with hyperbilirubinemia to 9.2 and AlkPhos of 462 at OSH, in the setting of known liver mets, transferred to [facility] for GI consult and possible MRCP d/t concern for choledocholithiasis CT a/p (performed and read at OSH) notable for extensive hepatic metastatic disease, cholelithiasis imaging to be transfered to [facility] for overread Receives chemotherapy q2wks (last done Tuesday) managed by a [facility] oncologist Mild-moderate upper abdominal tenderness on exam -WBC 73.67 --> 50.59, likely leukemoid reaction but will consult oncology -total bilirubin 11.1 Oncology consulted, recommendations appreciated Hyperbilirubinemia, transaminitis Choledocholithiasis Mild-moderate upper abdominal tenderness on exam CT a/p (performed and read at OSH) notable for extensive hepatic metastatic disease, cholelithiasis On arrival to [facility], labs notable for WBC 73.7, Hgb 9.7, INR 1.7, Ca 7.8 (ionized pending), phos 1.6, Tbili 9.8, AST 57, AlkPhos 392, albumin 2.7 Lactate level unable to be performed due to lab interference from hyperbilirubinemia Blood cultures pending GI consulted, MRCP today Continue empiric vanc/zosyn, if bcx negative can dc vanc Trend daily CBC, CMP, PT/INR Rib pain secondary to mechanical fall Patient with mild right-sided chest wall tenderness after a mechanical fall at home yesterday (03/26) No acute fracture on CXR Pain control with patient's home oxycodone 5mg q6h prn; avoid tylenol d/t hepatic pathology Incentive spirometry ordered -lidocaine patch ordered Atrial fibrillation Patient tachycardic to the 110s on admission EKG showing atrial fibrillation with RVR -recieved home atenolol with additional 100mg atenolol, digoxin 250mcg Continue home atenolol hsTroponin 53.8 --> 49.4 -hold home eliquis, started heparin drip given elevated troponins possible demand ischemia -Echo normal EF, moderate concentric LVH, RA LA mildly dilated, elevated right systolic pressure -IVF NSS bolus 1L for concern of hypovolemia. follow Hypophosphatemia Phosphate 1.6 on admission Potassium phosphate monobasic w/ sodium ordered, 1 tab qid Trend phos level Severe malnutrition - nutrition consult Anxiety -received 1mg ativan without improvement -improved with morphine HTN BP well-controlled on admission Given the risk of hypotension with the additional atenolol dose (above), will hold home quinapril and lasix for now Continue home spironolactone DM2 Last HbA1c unknown, repeat level ordered Patient's home regimen held on admission Continue BSG checks, sliding-scale insulin, hypoglycemic protocol HLD: not on a statin; lipid profile wnl FERNANDO: not on CPAP/BiPAP at home FEN: NPO for MRCP Code status: DNR/DNI DVT ppx: heparin drip Held home meds: lasix, quinapril, metformin, alendronate, eliquis Consults: gastroenterology, oncology PT/OT: ordered Dispo: PCU (2) Colorectal carcinoma: (3) Liver metastases: (4) Lung metastases: (5) Type 2 diabetes mellitus: (6) Atrial fibrillation: (7) Hypertension: (8) Hyperlipidemia: (9) Obstructive sleep apnea: Admission and Anticipated Discharge Date Admission Date: March 27, 2022 Supervising Physician Co-Signing Physician Notes Resident Physician Supervision Note: I independently interviewed and examined the patient and verified the jane history and physical, reviewed labs and image studies and agree with resident Dr. Jaimes findings and care plan. Subjective Patient seen at bedside, calm comfortable cooperative. He states he had some SOB overnight so his oxygen was increased to 4LNC. He still has pain on palpation of his right side, denies pain elsewhere, nausea, headache. Patient states GI came by yesterday and he may have imaging to be performed today. Otherwise no complaints as of today. Patient was made NPO last night midnight. Review of Systems Review of Systems: Negative fever chills Negative headache dizziness Negative chest pain palpitations SOB Negative nausea vomitting diarrhea constipation Negative numbness tingling rash swelling Physical Exam Constitutional: WD/WN, vitals as above Eyes: normal visual leiva by confrontation, + scleral abnormality (icteric), PERRL and EOM intact bilaterally ENMT: external ear and nose normal, oropharynx normal Neck: trachea midline, no thyromegaly Respiratory: normal respiratory effort, lungs clear to auscultation Cardiovascular: Rate/Rhythm: + irregularly irregular Heart Sounds: normal S1 and normal S2 Extremities: + edema (+1 pitting edema b/l ankles with chronic venous stasis) Chest (Breasts): Chest: + vascular access device or port (on left) Gastrointestinal (Abdomen): Inspection/Auscultation: abdomen normal to inspection and normal bowel sounds Percussion/Palpation: + abdomen tender (at RUQ and epigastric) and abdomen soft; no ascites Skin: no rashes, warm and dry Neurologic: CN's II-XI intact bilaterally Results & Data Results & Data ([facility]) Vital Signs (Past 12 Hours) Vital Signs Temp Pulse Pulse Resp BP Pulse Ox 03/29/22 07:31 36.9 C 92 H 17 118/78 100 03/29/22 03:08 36.6 C 111 H 20 121/72 100 03/28/22 23:06 36.6 C 112 H 16 124/81 98 03/28/22 23:00 122 H Laboratory Results 03/29/22 03/29/22 03/29/22 Range/Units 12:50 12:02 06:43 WBC (4.8-10.8) K/uL RBC (4.7-6.1) M/uL Hgb (14.0-18.0) g/dL Hct (42-52) % MCV (80-100) fL MCH (25-34) pg MCHC (32-36) g/dL RDW Std Deviation (36.4-46.3) fL RDW Coeff of Yenni (11.5-14.5) % Plt Count (130-400) K/uL MPV (7.4-10.4) fL Immature Gran % (Auto) % Neut % (Auto) % Lymph % (Auto) % Wheeler % (Auto) % Eos % (Auto) % Baso % (Auto) % Neut # (Auto) (1.4-6.5) K/uL Lymph # (Auto) (1.2-3.4) K/uL Wheeler # (Auto) (0.11-0.59) K/uL Eos # (Auto) (0-0.5) K/uL Baso # (Auto) (0-0.2) K/uL Immature Gran # (Auto) (0.00-0.02) K/uL Absolute Nucleated RBC (0-0) K/uL Nucleated RBC % (auto) % Platelet Estimate (Normal) Anisocytosis Peripher Smr Path Cons APTT 41.3 H 44.9 H (21.0-31.0) Seconds PTT Ratio 1.5 1.6 Sodium (136-145) mmol/L Potassium (3.5-5.1) mmol/L Chloride (98-107) mmol/L Carbon Dioxide (21-32) mmol/L Anion Gap (3-11) BUN (6-23) mg/dl Creatinine (0.6-1.4) mg/dl Est Cr Clr Drug Dosing ml/min Est GFR ( Amer) ml/min Est GFR (Non-Af Amer) ml/min BUN/Creatinine Ratio (10-20) Glucose (70-99(Fasting)) mg/dl POC Glucose 93 (70-99) mg/dl Estimat Average Glucose mg/dl Hemoglobin A1c (4.5-5.6) % Calcium (8.5-10.1) mg/dl Total Bilirubin (0.2-1.0) mg/dl AST (13-39) U/L ALT (7-52) U/L Alkaline Phosphatase (34-104) U/L Troponin I High Sens (0-20) pg/ml Total Protein (6.0-8.3) gm/dl Albumin (3.4-5.0) gm/dl Globulin (2.5-4.0) gm/dl Albumin/Globulin Ratio (0.9-2) 03/29/22 03/29/22 03/29/22 Range/Units 06:43 06:43 06:07 WBC 50.49 H* (4.8-10.8) K/uL RBC 3.57 L (4.7-6.1) M/uL Hgb 10.0 L (14.0-18.0) g/dL Hct 32.2 L (42-52) % MCV 90.2 (80-100) fL MCH 28.0 (25-34) pg MCHC 31.1 L (32-36) g/dL RDW Std Deviation 72.3 H (36.4-46.3) fL RDW Coeff of Yenni 22.4 H (11.5-14.5) % Plt Count 112 L (130-400) K/uL MPV 10.3 (7.4-10.4) fL Immature Gran % (Auto) 2.1 % Neut % (Auto) 96.0 % Lymph % (Auto) 0.6 % Wheeler % (Auto) 1.2 % Eos % (Auto) 0.1 % Baso % (Auto) 0.0 % Neut # (Auto) 48.42 H (1.4-6.5) K/uL Lymph # (Auto) 0.30 L (1.2-3.4) K/uL Wheeler # (Auto) 0.63 H (0.11-0.59) K/uL Eos # (Auto) 0.05 (0-0.5) K/uL Baso # (Auto) 0.02 (0-0.2) K/uL Immature Gran # (Auto) 1.07 H (0.00-0.02) K/uL Absolute Nucleated RBC 0.03 H (0-0) K/uL Nucleated RBC % (auto) 0.1 % Platelet Estimate Decreased L (Normal) Anisocytosis Present Peripher Smr Path Cons APTT (21.0-31.0) Seconds PTT Ratio Sodium 135 L (136-145) mmol/L Potassium 3.4 L (3.5-5.1) mmol/L Chloride 104 (98-107) mmol/L Carbon Dioxide 24 (21-32) mmol/L Anion Gap 7 (3-11) BUN 22 (6-23) mg/dl Creatinine 1.06 (0.6-1.4) mg/dl Est Cr Clr Drug Dosing 77.0 ml/min Est GFR ( Amer) 82.6 ml/min Est GFR (Non-Af Amer) 71.3 ml/min BUN/Creatinine Ratio 20.8 H (10-20) Glucose 103 H (70-99(Fasting)) mg/dl POC Glucose 110 H (70-99) mg/dl Estimat Average Glucose mg/dl Hemoglobin A1c (4.5-5.6) % Calcium 7.8 L (8.5-10.1) mg/dl Total Bilirubin 11.1 H (0.2-1.0) mg/dl AST 55 H (13-39) U/L ALT 42 (7-52) U/L Alkaline Phosphatase 454 H (34-104) U/L Troponin I High Sens (0-20) pg/ml Total Protein 5.1 L (6.0-8.3) gm/dl Albumin 2.5 L (3.4-5.0) gm/dl Globulin 2.6 (2.5-4.0) gm/dl Albumin/Globulin Ratio 1.0 (0.9-2) 03/28/22 03/28/22 03/28/22 Range/Units 23:09 19:37 17:40 WBC (4.8-10.8) K/uL RBC (4.7-6.1) M/uL Hgb (14.0-18.0) g/dL Hct (42-52) % MCV (80-100) fL MCH (25-34) pg MCHC (32-36) g/dL RDW Std Deviation (36.4-46.3) fL RDW Coeff of Yenni (11.5-14.5) % Plt Count (130-400) K/uL MPV (7.4-10.4) fL Immature Gran % (Auto) % Neut % (Auto) % Lymph % (Auto) % Wheeler % (Auto) % Eos % (Auto) % Baso % (Auto) % Neut # (Auto) (1.4-6.5) K/uL Lymph # (Auto) (1.2-3.4) K/uL Wheeler # (Auto) (0.11-0.59) K/uL Eos # (Auto) (0-0.5) K/uL Baso # (Auto) (0-0.2) K/uL Immature Gran # (Auto) (0.00-0.02) K/uL Absolute Nucleated RBC (0-0) K/uL Nucleated RBC % (auto) % Platelet Estimate (Normal) Anisocytosis Peripher Smr Path Cons APTT 49.8 H* (21.0-31.0) Seconds PTT Ratio 1.8 Sodium (136-145) mmol/L Potassium (3.5-5.1) mmol/L Chloride (98-107) mmol/L Carbon Dioxide (21-32) mmol/L Anion Gap (3-11) BUN (6-23) mg/dl Creatinine (0.6-1.4) mg/dl Est Cr Clr Drug Dosing ml/min Est GFR ( Amer) ml/min Est GFR (Non-Af Amer) ml/min BUN/Creatinine Ratio (10-20) Glucose (70-99(Fasting)) mg/dl POC Glucose 119 H (70-99) mg/dl Estimat Average Glucose mg/dl Hemoglobin A1c (4.5-5.6) % Calcium (8.5-10.1) mg/dl Total Bilirubin (0.2-1.0) mg/dl AST (13-39) U/L ALT (7-52) U/L Alkaline Phosphatase (34-104) U/L Troponin I High Sens 49.4 H (0-20) pg/ml Total Protein (6.0-8.3) gm/dl Albumin (3.4-5.0) gm/dl Globulin (2.5-4.0) gm/dl Albumin/Globulin Ratio (0.9-2) 03/28/22 03/28/22 03/28/22 Range/Units 17:40 15:52 04:14 WBC (4.8-10.8) K/uL RBC (4.7-6.1) M/uL Hgb (14.0-18.0) g/dL Hct (42-52) % MCV (80-100) fL MCH (25-34) pg MCHC (32-36) g/dL RDW Std Deviation (36.4-46.3) fL RDW Coeff of Yenni (11.5-14.5) % Plt Count (130-400) K/uL MPV (7.4-10.4) fL Immature Gran % (Auto) % Neut % (Auto) % Lymph % (Auto) % Wheeler % (Auto) % Eos % (Auto) % Baso % (Auto) % Neut # (Auto) (1.4-6.5) K/uL Lymph # (Auto) (1.2-3.4) K/uL Wheeler # (Auto) (0.11-0.59) K/uL Eos # (Auto) (0-0.5) K/uL Baso # (Auto) (0-0.2) K/uL Immature Gran # (Auto) (0.00-0.02) K/uL Absolute Nucleated RBC (0-0) K/uL Nucleated RBC % (auto) % Platelet Estimate (Normal) Anisocytosis Peripher Smr Path Cons APTT 46.1 H* (21.0-31.0) Seconds PTT Ratio 1.7 Sodium (136-145) mmol/L Potassium (3.5-5.1) mmol/L Chloride (98-107) mmol/L Carbon Dioxide (21-32) mmol/L Anion Gap (3-11) BUN (6-23) mg/dl Creatinine (0.6-1.4) mg/dl Est Cr Clr Drug Dosing ml/min Est GFR ( Amer) ml/min Est GFR (Non-Af Amer) ml/min BUN/Creatinine Ratio (10-20) Glucose (70-99(Fasting)) mg/dl POC Glucose 120 H (70-99) mg/dl Estimat Average Glucose mg/dl Hemoglobin A1c (4.5-5.6) % Calcium (8.5-10.1) mg/dl Total Bilirubin (0.2-1.0) mg/dl AST (13-39) U/L ALT (7-52) U/L Alkaline Phosphatase (34-104) U/L Troponin I High Sens (0-20) pg/ml Total Protein (6.0-8.3) gm/dl Albumin (3.4-5.0) gm/dl Globulin (2.5-4.0) gm/dl Albumin/Globulin Ratio (0.9-2) // Range/Units 00:44 WBC (4.8-10.8) K/uL RBC (4.7-6.1) M/uL Hgb (14.0-18.0) g/dL Hct (42-52) % MCV (80-100) fL MCH (25-34) pg MCHC (32-36) g/dL RDW Std Deviation (36.4-46.3) fL RDW Coeff of Yenni (11.5-14.5) % Plt Count (130-400) K/uL MPV (7.4-10.4) fL Immature Gran % (Auto) % Neut % (Auto) % Lymph % (Auto) % Wheeler % (Auto) % Eos % (Auto) % Baso % (Auto) % Neut # (Auto) (1.4-6.5) K/uL Lymph # (Auto) (1.2-3.4) K/uL Wheeler # (Auto) (0.11-0.59) K/uL Eos # (Auto) (0-0.5) K/uL Baso # (Auto) (0-0.2) K/uL Immature Gran # (Auto) (0.00-0.02) K/uL Absolute Nucleated RBC (0-0) K/uL Nucleated RBC % (auto) % Platelet Estimate (Normal) Anisocytosis Peripher Smr Path Cons APTT (21.0-31.0) Seconds PTT Ratio Sodium (136-145) mmol/L Potassium (3.5-5.1) mmol/L Chloride (98-107) mmol/L Carbon Dioxide (21-32) mmol/L Anion Gap (3-11) BUN (6-23) mg/dl Creatinine (0.6-1.4) mg/dl Est Cr Clr Drug Dosing ml/min Est GFR ( Amer) ml/min Est GFR (Non-Af Amer) ml/min BUN/Creatinine Ratio (10-20) Glucose (70-99(Fasting)) mg/dl POC Glucose (70-99) mg/dl Estimat Average Glucose 126 mg/dl Hemoglobin A1c 6.0 H (4.5-5.6) % Calcium (8.5-10.1) mg/dl Total Bilirubin (0.2-1.0) mg/dl AST (13-39) U/L ALT (7-52) U/L Alkaline Phosphatase (34-104) U/L Troponin I High Sens (0-20) pg/ml Total Protein (6.0-8.3) gm/dl Albumin (3.4-5.0) gm/dl Globulin (2.5-4.0) gm/dl Albumin/Globulin Ratio (0.9-2) Resident Activity Tracking Resident Involvement: Resident Care Provided Care Provided: Adult [facility]
[2022-03-29 13:49] LABS: Partial Thromboplastin Ratio 1.5; Partial Thromboplastin Time 41.3 Seconds (21.0-31.0)
[2022-03-29] MEDS ORDERED: LORazepam 0.5 MG TAB PO STA (15:26)
[2022-03-29] MEDS ORDERED: LORazepam 0.5 MG TAB PO ONE (18:15)
--- NOTE | 2022-03-29 21:52 | Magnetic Resonance Report ---
MRCP CLINICAL HISTORY: Choledocholithiasis seen by CT. COMPARISON STUDY: Abdominal CT dated 03/26/2022. TECHNIQUE: Abdominal MRCP is performed utilizing various T2-weighted sequences in the axial and coron al planes. 3-D reformats are created and assessed. IV contrast was not administered for this examinat ion. The examination is degraded by motion artifact. FINDINGS: There are numerous gallstones within the gallbladder lumen. The gallbladder is distended, and the wal l appears thickened. There is trace pericholecystic fluid. There is no intra or extrahepatic biliary ductal dilatation. The common bile duct measures up to 5.5 mm in diameter. There are small filling de fects in the distal common bile duct consistent with choledocholithiasis. This was also seen by CT. T he pancreatic duct is normal in caliber. There is a small volume of upper abdominal ascites as well as small pleural effusions. A 13.5 cm mass lesion is present in the right lobe of the liver. There is hypertrophy of the left lobe, with a 6 cm left lobe hepatic mass. The kidneys are atrophic and without hydronephrosis. Bilateral renal cysts m easure up to 3.8 cm. The unenhanced spleen, adrenal glands, and pancreas are grossly unremarkable. Th e abdominal aorta is normal in caliber. No bowel obstruction is seen. No destructive bony lesion is i dentified. Multifocal pulmonary metastatic disease is present at the lung bases. The heart is enlarge d. IMPRESSION: 1. Cholelithiasis within a distended and mildly thick-walled gallbladder. Acute cholecystitis is not excluded, and clinical/laboratory correlation will be required. A nuclear hepatobiliary scan could be considered if clinically warranted. 2. Choledocholithiasis. 3. There is no intra or extrahepatic biliary ductal dilatation. 4. There are large hepatic masses and evidence of multifocal pulmonary metastatic disease. Correlate with the patient's oncological history. 5. Small pleural effusions and small volume perihepatic ascites. Dictated: 03/29/2022 9:21 PM Transcribed: 03/29/2022 9:41 PM Mirian [id number] [email or web address] Electronically signed by: Zhao Ramirez M.D. 03/29/2022 9:50 PM
[2022-03-29 22:06] LABS: Partial Thromboplastin Ratio 1.9
[2022-03-29 22:08] LABS: Partial Thromboplastin Time 50.9 Seconds (21.0-31.0)
[2022-03-30] MEDS: oxyCODONE HCL IR 5 MG TAB (IMMEDIATE RELEASE) PO PRN ×3 (05:29→20:53)
[2022-03-30] MEDS: HEPARIN SODIUM/DEXTROSE 25,000 UNITS/500 ML BAG IV SCH (05:44)
[2022-03-30 06:15] LABS: INR 1.4 (0.9-1.1); Mean Corpuscular Hgb Conc 30.3 g/dL (32-36); Nucleated RBC # (auto) 0.03 K/uL (0-0); Nucleated RBC % (auto) 0.1 %; Prothrombin Time 15.1 Seconds (9.0-12.0)
[2022-03-30 06:22] LABS: Hematocrit (blood only) 33.7 % (42-52); Hemoglobin 10.2 g/dL (14.0-18.0); Mean Corpuscular Volume 89.2 fL (80-100); RDW Coefficient of Variation 22.3 % (11.5-14.5); RDW Standard Deviation 70.9 fL (36.4-46.3); Red Blood Count 3.78 M/uL (4.7-6.1); White Blood Count 28.46 K/uL (4.8-10.8)
[2022-03-30 06:25] LABS: Albumin Globulin Ratio 0.9 (0.9-2); Albumin Level 2.4 gm/dl (3.4-5.0); BUN Creatinine Ratio 19.4 (10-20); Bilirubin,Total 12.9 mg/dl (0.2-1.0); Calcium 7.8 mg/dl (8.5-10.1); Creatinine Clr Calc Pharmacy 69.4 ml/min; Est GFR (African American) 68.3 ml/min; Est GFR (Non-African American) 58.9 ml/min; Globulin 2.8 gm/dl (2.5-4.0); Potassium 3.5 mmol/L (3.5-5.1); Total Protein 5.2 gm/dl (6.0-8.3)
[2022-03-30 07:01] LABS: Platelet Count 107 K/uL (130-400)
[2022-03-30 07:02] LABS: Platelet Estimate SN (Normal)
--- NOTE | 2022-03-30 07:11 | Hospitalist Progress Note ---
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 Severe leukocytosis - improving - Discussed with oncology, likely leukemoid reaction Colorectal carcinoma with liver and lung mets Patient noted with hyperbilirubinemia to 9.2 and AlkPhos of 462 at OSH, in the setting of known liver mets, transferred to [facility] for GI consult and possible MRCP d/t concern for choledocholithiasis CT a/p (performed and read at OSH) notable for extensive hepatic metastatic disease, cholelithiasis imaging to be transfered to [facility] for overread Receives chemotherapy q2wks (last done Tuesday) managed by a [facility] oncologist Mild-moderate upper abdominal tenderness on exam -WBC 73.67 --> 28.46 -total bilirubin 9.8 --> 12.9 Hyperbilirubinemia, transaminitis Choledocholithiasis Mild-moderate upper abdominal tenderness on exam CT a/p (performed and read at OSH) notable for extensive hepatic metastatic disease, cholelithiasis On arrival to [facility], labs notable for WBC 73.7, Hgb 9.7, INR 1.7, Ca 7.8 (ionized pending), phos 1.6, Tbili 9.8, AST 57, AlkPhos 392, albumin 2.7 Lactate level unable to be performed due to lab interference from hyperbilirubinemia Blood cultures negative 48hr GI consulted, MRCP with choledocholithiasis. ERCP tomorrow continuezosyn, vanc dc'd Trend daily CBC, CMP, PT/INR Rib pain secondary to mechanical fall Patient with mild right-sided chest wall tenderness after a mechanical fall at home yesterday (03/26) No acute fracture on CXR Pain control with patient's home oxycodone 5mg q6h prn; avoid tylenol d/t hepatic pathology Incentive spirometry ordered -lidocaine patch, ibuprofen ordered Atrial fibrillation Patient tachycardic to the 110s on admission EKG showing atrial fibrillation with RVR -recieved home atenolol with additional 100mg atenolol, digoxin 250mcg Continue home atenolol hsTroponin 53.8 --> 49.4 -eliquis held on admission, started heparin drip given elevated troponins possible demand ischemia --> heparin d/c'd 03/30 resumed eliquis 5mg BID -Echo normal EF, moderate concentric LVH, RA LA mildly dilated, elevated right systolic pressure Hypophosphatemia Phosphate 1.6 on admission Potassium phosphate monobasic w/ sodium ordered, 1 tab qid Trend phos level Severe malnutrition - nutrition consult = PO as tolerated, add boost, replete electrolytes Anxiety -received 1mg ativan without improvement -improved with morphine HTN BP well-controlled on admission Given the risk of hypotension with the additional atenolol dose (above), will hold home quinapril and lasix for now Continue home spironolactone DM2 Last HbA1c unknown, repeat level ordered Patient's home regimen held on admission Continue BSG checks, sliding-scale insulin, hypoglycemic protocol HLD: not on a statin; lipid profile wnl FERNANDO: not on CPAP/BiPAP at home FEN: NPO for MRCP Code status: DNR/DNI DVT ppx: heparin drip Held home meds: lasix, quinapril, metformin, alendronate, eliquis Consults: gastroenterology, oncology PT/OT: ordered Dispo: PCU (2) Colorectal carcinoma: (3) Liver metastases: (4) Lung metastases: (5) Type 2 diabetes mellitus: (6) Atrial fibrillation: (7) Hypertension: (8) Hyperlipidemia: (9) Obstructive sleep apnea: Admission and Anticipated Discharge Date Admission Date: March 27, 2022 Supervising Physician Co-Signing Physician Notes Resident Physician Supervision Note: I independently interviewed and examined the patient and verified the jane history and physical, reviewed labs and image studies and agree with resident Dr. Jaimes findings and care plan. Subjective Patient seen at bedside, calm comfortable cooperative. He denies any worsening of SOB. States he still has some tenderness on palpation on his right side. Otherwise has not difficulty sitting up, walking. Patient understands he has sto charity in his common bile duct and will require ERCP tomorrow to have them removed. No acute concerns at this time. Review of Systems Review of Systems: Negative fever chills Negative headache dizziness Negative chest pain palpitations SOB Negative nausea vomitting diarrhea constipation Negative numbness tingling rash swelling Physical Exam Constitutional: WD/WN, vitals as above Eyes: normal visual leiva by confrontation, + scleral abnormality (icteric), PERRL and EOM intact bilaterally ENMT: external ear and nose normal, oropharynx normal Neck: trachea midline, no thyromegaly Respiratory: normal respiratory effort, lungs clear to auscultation Cardiovascular: Rate/Rhythm: + irregularly irregular Heart Sounds: normal S1 and normal S2 Extremities: + edema (+1 pitting edema b/l ankles with ch ronic venous stasis) Chest (Breasts): Chest: + vascular access device or port (on left) Gastrointestinal (Abdomen): Inspection/Auscultation: abdomen normal to inspection and normal bowel sounds Percussion/Palpation: + abdomen tender (at RUQ and epigastric) and abdomen soft; no ascites Skin: no rashes, warm and dry Neurologic: CN's II-XI intact bilaterally Results & Data Results & Data ([facility]) Vital Signs (Past 12 Hours) Vital Signs Temp Pulse Pulse Resp BP Pulse Ox 03/30/22 03:02 36.8 C 119 H 18 113/75 100 03/29/22 23:20 36.5 C 114 H 18 127/85 100 03/29/22 22:17 109 H 03/29/22 20:21 36.6 C 120 H 18 132/78 98 Laboratory Results 03/30/22 03/30/22 03/30/22 Range/Units 11:29 07:21 05:36 WBC (4.8-10.8) K/uL RBC (4.7-6.1) M/uL Hgb (14.0-18.0) g/dL Hct (42-52) % MCV (80-100) fL MCH (25-34) pg MCHC (32-36) g/dL RDW Std Deviation (36.4-46.3) fL RDW Coeff of Yenni (11.5-14.5) % Plt Count (130-400) K/uL MPV (7.4-10.4) fL Absolute Nucleated RBC (0-0) K/uL Nucleated RBC % (auto) % Platelet Estimate (Normal) PT (9.0-12.0) Seconds INR (0.9-1.1) APTT 54.5 H* (21.0-31.0) Seconds PTT Ratio 2.0 Sodium (136-145) mmol/L Potassium (3.5-5.1) mmol/L Chloride (98-107) mmol/L Carbon Dioxide (21-32) mmol/L Anion Gap (3-11) BUN (6-23) mg/dl Creatinine (0.6-1.4) mg/dl Est Cr Clr Drug Dosing ml/min Est GFR ( Amer) ml/min Est GFR (Non-Af Amer) ml/min BUN/Creatinine Ratio (10-20) Glucose (70-99(Fasting)) mg/dl POC Glucose 121 H 187 H (70-99) mg/dl Calcium (8.5-10.1) mg/dl Total Bilirubin (0.2-1.0) mg/dl AST (13-39) U/L ALT (7-52) U/L Alkaline Phosphatase (34-104) U/L Total Protein (6.0-8.3) gm/dl Albumin (3.4-5.0) gm/dl Globulin (2.5-4.0) gm/dl Albumin/Globulin Ratio (0.9-2) Vancomycin Trough (10-20) mcg/ml Miscellaneous Test 03/30/22 03/30/22 03/30/22 Range/Units 05:36 05:36 05:36 WBC 28.46 H D (4.8-10.8) K/uL RBC 3.78 L (4.7-6.1) M/uL Hgb 10.2 L (14.0-18.0) g/dL Hct 33.7 L (42-52) % MCV 89.2 (80-100) fL MCH 27.0 (25-34) pg MCHC 30.3 L (32-36) g/dL RDW Std Deviation 70.9 H (36.4-46.3) fL RDW Coeff of Yenni 22.3 H (11.5-14.5) % Plt Count 107 L (130-400) K/uL MPV 11.0 H (7.4-10.4) fL Absolute Nucleated RBC 0.03 H (0-0) K/uL Nucleated RBC % (auto) 0.1 % Platelet Estimate SN (Normal) PT 15.1 H (9.0-12.0) Seconds INR 1.4 H (0.9-1.1) APTT (21.0-31.0) Seconds PTT Ratio Sodium 135 L (136-145) mmol/L Potassium 3.5 (3.5-5.1) mmol/L Chloride 102 (98-107) mmol/L Carbon Dioxide 26 (21-32) mmol/L Anion Gap 7 (3-11) BUN 24 H (6-23) mg/dl Creatinine 1.24 (0.6-1.4) mg/dl Est Cr Clr Drug Dosing 69.4 ml/min Est GFR ( Amer) 68.3 ml/min Est GFR (Non-Af Amer) 58.9 ml/min BUN/Creatinine Ratio 19.4 (10-20) Glucose 143 H (70-99(Fasting)) mg/dl POC Glucose (70-99) mg/dl Calcium 7.8 L (8.5-10.1) mg/dl Total Bilirubin 12.9 H (0.2-1.0) mg/dl AST 75 H (13-39) U/L ALT 48 (7-52) U/L Alkaline Phosphatase 556 H (34-104) U/L Total Protein 5.2 L (6.0-8.3) gm/dl Albumin 2.4 L (3.4-5.0) gm/dl Globulin 2.8 (2.5-4.0) gm/dl Albumin/Globulin Ratio 0.9 (0.9-2) Vancomycin Trough (10-20) mcg/ml Miscellaneous Test 03/30/22 03/29/22 03/29/22 Range/Units 01:27 21:28 20:30 WBC (4.8-10.8) K/uL RBC (4.7-6.1) M/uL Hgb (14.0-18.0) g/dL Hct (42-52) % MCV (80-100) fL MCH (25-34) pg MCHC (32-36) g/dL RDW Std Deviation (36.4-46.3) fL RDW Coeff of Yenni (11.5-14.5) % Plt Count (130-400) K/uL MPV (7.4-10.4) fL Absolute Nucleated RBC (0-0) K/uL Nucleated RBC % (auto) % Platelet Estimate (Normal) PT (9.0-12.0) Seconds INR (0.9-1.1) APTT 50.9 H* (21.0-31.0) Seconds PTT Ratio 1.9 Sodium (136-145) mmol/L Potassium (3.5-5.1) mmol/L Chloride (98-107) mmol/L Carbon Dioxide (21-32) mmol/L Anion Gap (3-11) BUN (6-23) mg/dl Creatinine (0.6-1.4) mg/dl Est Cr Clr Drug Dosing ml/min Est GFR ( Amer) ml/min Est GFR (Non-Af Amer) ml/min BUN/Creatinine Ratio (10-20) Glucose (70-99(Fasting)) mg/dl POC Glucose 82 (70-99) mg/dl Calcium (8.5-10.1) mg/dl Total Bilirubin (0.2-1.0) mg/dl AST (13-39) U/L ALT (7-52) U/L Alkaline Phosphatase (34-104) U/L Total Protein (6.0-8.3) gm/dl Albumin (3.4-5.0) gm/dl Globulin (2.5-4.0) gm/dl Albumin/Globulin Ratio (0.9-2) Vancomycin Trough 26.1 H* (10-20) mcg/ml Miscellaneous Test 03/29/22 03/28/22 Range/Units 18:20 04:14 WBC (4.8-10.8) K/uL RBC (4.7-6.1) M/uL Hgb (14.0-18.0) g/dL Hct (42-52) % MCV (80-100) fL MCH (25-34) pg MCHC (32-36) g/dL RDW Std Deviation (36.4-46.3) fL RDW Coeff of Yenni (11.5-14.5) % Plt Count (130-400) K/uL MPV (7.4-10.4) fL Absolute Nucleated RBC (0-0) K/uL Nucleated RBC % (auto) % Platelet Estimate (Normal) PT (9.0-12.0) Seconds INR (0.9-1.1) APTT (21.0-31.0) Seconds PTT Ratio Sodium (136-145) mmol/L Potassium (3.5-5.1) mmol/L Chloride (98-107) mmol/L Carbon Dioxide (21-32) mmol/L Anion Gap (3-11) BUN (6-23) mg/dl Creatinine (0.6-1.4) mg/dl Est Cr Clr Drug Dosing ml/min Est GFR ( Amer) ml/min Est GFR (Non-Af Amer) ml/min BUN/Creatinine Ratio (10-20) Glucose (70-99(Fasting)) mg/dl POC Glucose 72 (70-99) mg/dl Calcium (8.5-10.1) mg/dl Total Bilirubin (0.2-1.0) mg/dl AST (13-39) U/L ALT (7-52) U/L Alkaline Phosphatase (34-104) U/L Total Protein (6.0-8.3) gm/dl Albumin (3.4-5.0) gm/dl Globulin (2.5-4.0) gm/dl Albumin/Globulin Ratio (0.9-2) Vancomycin Trough (10-20) mcg/ml Miscellaneous Test REPORT Medications Administered Current Inpatient Medications Allopurinol (Allopurinol 100 Mg Tab) 100 mg PO DAILY [facility] Stop: 04/27/22 08:59 Last Admin: 03/30/22 08:14 Dose: 100 mg Documented by: Atenolol (Atenolol 50 Mg Tablet) 100 mg PO BID YI Stop: 04/26/22 22:44 Last Admin: 03/30/22 08:14 Dose: 100 mg Documented by: Dextrose (Dextrose 50% 50 Ml Syringe) 25 - 50 ml IV UD PRN; Protocol PRN Reason: Hypoglycemia Protocol Stop: 04/26/22 21:31 Famotidine (Famotidine 20 Mg Tab) 20 mg PO BID PRN PRN Reason: Dyspepsia Stop: 04/29/22 20:59 Glucagon (Glucagon For Inj 1 Mg Vial) 1 mg SQ UD PRN; Protocol PRN Reason: Hypoglycemia Protocol Stop: 04/26/22 21:31 Glucose (Glucose 10 Tabs/Tube) 4 - 8 tabs PO UD PRN; Protocol PRN Reason: Hypoglycemia Protocol Stop: 04/26/22 21:31 Glucose (Glucose 40% Gel 15 Gm Tube) 15 - 30 gm PO UD PRN; Protocol PRN Reason: Hypoglycemia Protocol Stop: 04/26/22 21:31 Heparin Sodium (Porcine) (Heparin 100 Unit/Ml 5ml Flush) 5 ml FLUSH PRN PRN PRN Reason: Flush Stop: 04/27/22 02:13 Piperacillin Sod/Tazobactam (Sod 4.5 gm/ Dextrose) 120 mls @ 30 mls/hr IV Q8H [facility]; Protocol Stop: 04/07/22 07:59 Last Infusion: 03/30/22 11:47 Dose: Infused Documented by: Heparin Sodium/Dextrose (Heparin Sodium/Dextrose) 25,000 units in 500 mls @ 24 mls/hr IV .[id number] [facility]; Protocol Stop: 04/27/22 08:59 Last Titration: 03/30/22 09:20 Dose: 1,200 units/hr, 24 mls/hr Documented by: Insulin Aspart (Insulin Aspart Per Unit) 0 units SC ACHS [facility] Stop: 04/29/22 07:29 Last Admin: 03/30/22 11:47 Dose: 4 units Documented by: Lidocaine (Lidocaine 5% 1 Patch) 1 patch TD QAM [facility] Stop: 04/27/22 08:59 Last Admin: 03/30/22 08:15 Dose: 1 patch Documented by: Melatonin (Melatonin 3 Mg Tab) 3 mg PO HS PRN PRN Reason: Sleep Stop: 04/26/22 21:46 Last Admin: 03/29/22 21:10 Dose: 3 mg Documented by: Miscellaneous (Carbohydrates For Hypoglycemia ) 15 - 30 gm PO UD PRN PRN Reason: Hypoglycemia Protocol Stop: 04/26/22 21:31 Miscellaneous (Remove Lidoderm Patch) 1 ea N/A DAILY@2100 [facility] Stop: 04/27/22 20:59 Last Admin: 03/29/22 21:11 Dose: 1 ea Documented by: Oxycodone HCl (Oxycodone Hcl Ir 5 Mg Tab (Immediate Release)) 5 mg PO Q6H PRN PRN Reason: Pain Stop: 04/10/22 21:52 Last Admin: 03/30/22 13:42 Dose: 5 mg Documented by: Pantoprazole Sodium (Pantoprazole 40 Mg Tab) 40 mg PO QAM [facility] Stop: 04/27/22 08:59 Last Admin: 03/30/22 08:14 Dose: 40 mg Documented by: Potassium Phosphate (Pot Phosphate Monobasic W/ Sod Tab) 1 tab PO QID [facility] Stop: 04/27/22 01:49 Last Admin: 03/30/22 12:45 Dose: 1 tab Documented by: Spironolactone (Spironolactone 25 Mg Tab) 25 mg PO QAM [facility] Stop: 04/27/22 08:59 Last Admin: 03/30/22 08:14 Dose: 25 mg Documented by: Resident Activity Tracking Resident Involvement: Resident Care Provided Care Provided: Adult Hospital Medicine
[2022-03-30] MEDS: PIPERACILLIN/TAZOBACTAM 4.5 GM in DEXTROSE 5% 100 ML IV SCH ×3 (07:51→23:37)
[2022-03-30 08:03] LABS: Partial Thromboplastin Time 54.5 Seconds (21.0-31.0)
[2022-03-30] MEDS: SPIRONOLACTONE 25 MG TAB PO SCH (08:14)
[2022-03-30] MEDS: ATENOLOL 50 MG TABLET PO SCH ×2 (08:14→20:55)
[2022-03-30] MEDS: PANTOprazole 40 MG TAB PO SCH (08:14)
[2022-03-30] MEDS: POT PHOSPHATE MONOBASIC W/ SOD TAB PO SCH ×4 (08:14→20:55)
[2022-03-30] MEDS: allopurinoL 100 MG TAB PO SCH (08:14)
[2022-03-30] MEDS: LIDOCAINE 5% 1 PATCH TD SCH (08:15)
[2022-03-30] MEDS: INSULIN ASPART PER UNIT SC SCH ×4 (09:19→21:08)
--- NOTE | 2022-03-30 10:32 | Communication Note ---
Date of Service: March 30, 2022 Reviewed patient's MRCP which was positive for choledocholithiasis. Would advise consulting with [facility] for consideration of ERCP. In the interim, continue to monitor WBC count & LFTs and continue IV Zosyn.
--- NOTE | 2022-03-30 14:25 | Gastrointestinal Consultation ---
Date of Consultation March 30, 2022 Assessment & Plan (1) Elevated bilirubin: (2) Colorectal carcinoma: (3) Liver metastases: (4) Choledocholithiasis: This is a 71 y/o male with multiple co-morbids including metastatic colon CA to the liver and lungs, with elevated bilirubin, leukocytosis and MRCP suggesting choledocholithiasis. We are consulted to consider ERCP. Today pt is afebrile, resting comfortably in bed; abd soft. Overall presentation suspicious for choledocholithiasis. - Continue IV ABX - IVF - Analgesia PRN - Supportive care for other co-morbids - Daily INR, LFTs, CBC - Await BCx - NPO after midnight - Will plan for ERCP tomorrow for removal of suspected CBD stone - Await oncology eval - Consider general surgery eval for cholecystectomy, alternatively could consider AXIOS stent if deemed not a surgical candidate Thank you for allowing us to participate in the care of this patient. Please call with any acute changes, questions or concerns. Please see addendum below with additional recommendation from my supervising physician. Supervising Physician Co-Signing Physician Notes I performed a history and physical examination of the patient today, including specifically on physical exam - soft abdomen. I have discussed the patient's management with the advanced practitioner. Please refer to the nurse practitioner's note for the documented findings and plan of care. ERCP tomorrow History of Present Illness Reason for Consultation: Choledocholithiasis Requesting Physician: Dr. Jaimes Attending Physician: Aminta Broussard MD History of Present Illness This is a 71 y/o male w/ PMHx colorectal carcinoma with mets to the lung and liver (chemo q other week; sees oncology through [facility]), atrial fibrillation (on Eliquis), HTN, HLD, T2DM, and FERNANDO presents as a transfer from [facility] with concern for choledocholithiasis after originally presenting to OSH with right-sided rib pain due to a mechanical fall. He had elevated tbili, ALP, WBC and lactate. He as transferred to [facility] for GI consult for suspected choledocholithiases. He was placed on Zosyn/Vanc prior to transfer; BCx pending. On arrival WBC 73k (now 28k), HGB 9.7, INR 1.7 (now 1.4), tbili 9.8 (now 12), ALP 392. MRCP positive for choledocholithiasis, cholelithiasis, distended thick walled GB; acute cholecystitis not excluded; he has large hepatic masses and pulmonary metastatic dz. We are consulted for suspected choledocholithiasis. Currently pt resting in bed; having right-sided abd pain; he states it's only really bad when someone presses on it. Had formed brown BM today. Tolerated breakfast this AM. Denies fever, chills, CP, SOB, nausea, vomiting, constipation, diarrhea, lightheadedness, melena, hematochezia, hematemesis. Oncology eval pending for leukocytosis. Eliquis held, had elevated troponin and pt on Heparin; ? demand ischemia. EKG w/ a-fib w/ RVR. No h/o RYGB. OSH imaging: US abdomen: heterogenous liver with innumerable hyperechoic masses consistent with mets CT a/p: extensive hepatic metastatic disease, cholelithiasis CT chest: extensive bilateral pulmonary mets, trace BL pleural effusions, scattered ground glass opacities in right perihilar region and right upper lobe which may be related to inflammatory pneumonitis and/or infectious pneumonia CT head: no acute intracranial pathology CXR: diffuse bilateral interstitial and alveolar airspace opacities Allergies Allergy/AdvReac Type Severity Reaction Status Date / Time No Known Allergies Allergy Verified 03/27/22 22:32 Home Medications Medication Instructions Recorded Confirmed Type alendronate 70 mg tablet mg PO 03/27/22 History allopurinol 100 mg tablet mg 03/27/22 History apixaban 5 mg tablet (Eliquis) mg BID 03/27/22 History atenolol 100 mg tablet mg 03/27/22 History esomeprazole magnesium 40 mg mg 03/27/22 History capsule,delayed release furosemide 40 mg tablet mg 03/27/22 History metformin 500 mg tablet,extended mg PO 03/27/22 History release 24 hr oxycodone 5 mg tablet mg 03/27/22 History quinapril 20 mg tablet mg 03/27/22 History spironolactone 25 mg tablet mg 03/27/22 History Patient History Medical History Anemia Atrial fibrillation Colorectal carcinoma Elevated bilirubin Hyperlipidemia Hypertension Liver metastases Lung metastases Obesity Obstructive sleep apnea Social History Smoking Status: Never smoker Hx Alcohol Use: Yes (Quit 2013) Hx Substance Use: No Preferred Language: Lao Communication Ability: Effective Mimeograph Operator Required: No Beliefs That Will Affect Care: None Current Living Situation: Spouse Feels Safe at Home: Yes Assistive Devices: Walker Review of Systems Review of Systems: All systems reviewed & are unremarkable except as noted in HPI & below Physical Exam Constitutional: chronically ill, NAD; + jaundice Eyes: PERRL, conjunctivae normal, anicteric sclerae Respiratory: normal respiratory effort, lungs clear to auscultation Cardiovascular: irregularly irregular, + tachycardic Gastrointestinal (Abdomen): Soft, TTP RUQ; non distended, no rebound guarding. + BS Skin: no rashes, warm and dry Psychiatric: A+Ox3, euthymic affect Results & Data ([facility]) Vital Signs (Past 12 Hours) Vital Signs Temp Pulse Pulse Resp BP Pulse Ox 03/30/22 12:58 18 95 03/30/22 12:44 36.9 C 100 H 16 119/76 100 03/30/22 10:55 105 H 03/30/22 07:50 37.0 C 107 H 16 114/72 100 03/30/22 03:02 36.8 C 119 H 18 113/75 100 Laboratory Results 03/30/22 03/30/22 03/30/22 Range/Units 11:29 07:21 05:36 WBC (4.8-10.8) K/uL RBC (4.7-6.1) M/uL Hgb (14.0-18.0) g/dL Hct (42-52) % MCV (80-100) fL MCH (25-34) pg MCHC (32-36) g/dL RDW Std Deviation (36.4-46.3) fL RDW Coeff of Yenni (11.5-14.5) % Plt Count (130-400) K/uL MPV (7.4-10.4) fL Absolute Nucleated RBC (0-0) K/uL Nucleated RBC % (auto) % Platelet Estimate (Normal) PT (9.0-12.0) Seconds INR (0.9-1.1) APTT 54.5 H* (21.0-31.0) Seconds PTT Ratio 2.0 Sodium (136-145) mmol/L Potassium (3.5-5.1) mmol/L Chloride (98-107) mmol/L Carbon Dioxide (21-32) mmol/L Anion Gap (3-11) BUN (6-23) mg/dl Creatinine (0.6-1.4) mg/dl Est Cr Clr Drug Dosing ml/min Est GFR ( Amer) ml/min Est GFR (Non-Af Amer) ml/min BUN/Creatinine Ratio (10-20) Glucose (70-99(Fasting)) mg/dl POC Glucose 121 H 187 H (70-99) mg/dl Calcium (8.5-10.1) mg/dl Total Bilirubin (0.2-1.0) mg/dl AST (13-39) U/L ALT (7-52) U/L Alkaline Phosphatase (34-104) U/L Total Protein (6.0-8.3) gm/dl Albumin (3.4-5.0) gm/dl Globulin (2.5-4.0) gm/dl Albumin/Globulin Ratio (0.9-2) Vancomycin Trough (10-20) mcg/ml Miscellaneous Test 03/30/22 03/30/22 03/30/22 Range/Units 05:36 05:36 05:36 WBC 28.46 H D (4.8-10.8) K/uL RBC 3.78 L (4.7-6.1) M/uL Hgb 10.2 L (14.0-18.0) g/dL Hct 33.7 L (42-52) % MCV 89.2 (80-100) fL MCH 27.0 (25-34) pg MCHC 30.3 L (32-36) g/dL RDW Std Deviation 70.9 H (36.4-46.3) fL RDW Coeff of Yenni 22.3 H (11.5-14.5) % Plt Count 107 L (130-400) K/uL MPV 11.0 H (7.4-10.4) fL Absolute Nucleated RBC 0.03 H (0-0) K/uL Nucleated RBC % (auto) 0.1 % Platelet Estimate SN (Normal) PT 15.1 H (9.0-12.0) Seconds INR 1.4 H (0.9-1.1) APTT (21.0-31.0) Seconds PTT Ratio Sodium 135 L (136-145) mmol/L Potassium 3.5 (3.5-5.1) mmol/L Chloride 102 (98-107) mmol/L Carbon Dioxide 26 (21-32) mmol/L Anion Gap 7 (3-11) BUN 24 H (6-23) mg/dl Creatinine 1.24 (0.6-1.4) mg/dl Est Cr Clr Drug Dosing 69.4 ml/min Est GFR ( Amer) 68.3 ml/min Est GFR (Non-Af Amer) 58.9 ml/min BUN/Creatinine Ratio 19.4 (10-20) Glucose 143 H (70-99(Fasting)) mg/dl POC Glucose (70-99) mg/dl Calcium 7.8 L (8.5-10.1) mg/dl Total Bilirubin 12.9 H (0.2-1.0) mg/dl AST 75 H (13-39) U/L ALT 48 (7-52) U/L Alkaline Phosphatase 556 H (34-104) U/L Total Protein 5.2 L (6.0-8.3) gm/dl Albumin 2.4 L (3.4-5.0) gm/dl Globulin 2.8 (2.5-4.0) gm/dl Albumin/Globulin Ratio 0.9 (0.9-2) Vancomycin Trough (10-20) mcg/ml Miscellaneous Test 03/30/22 03/29/22 03/29/22 Range/Units 01:27 21:28 20:30 WBC (4.8-10.8) K/uL RBC (4.7-6.1) M/uL Hgb (14.0-18.0) g/dL Hct (42-52) % MCV (80-100) fL MCH (25-34) pg MCHC (32-36) g/dL RDW Std Deviation (36.4-46.3) fL RDW Coeff of Yenni (11.5-14.5) % Plt Count (130-400) K/uL MPV (7.4-10.4) fL Absolute Nucleated RBC (0-0) K/uL Nucleated RBC % (auto) % Platelet Estimate (Normal) PT (9.0-12.0) Seconds INR (0.9-1.1) APTT 50.9 H* (21.0-31.0) Seconds PTT Ratio 1.9 Sodium (136-145) mmol/L Potassium (3.5-5.1) mmol/L Chloride (98-107) mmol/L Carbon Dioxide (21-32) mmol/L Anion Gap (3-11) BUN (6-23) mg/dl Creatinine (0.6-1.4) mg/dl Est Cr Clr Drug Dosing ml/min Est GFR ( Amer) ml/min Est GFR (Non-Af Amer) ml/min BUN/Creatinine Ratio (10-20) Glucose (70-99(Fasting)) mg/dl POC Glucose 82 (70-99) mg/dl Calcium (8.5-10.1) mg/dl Total Bilirubin (0.2-1.0) mg/dl AST (13-39) U/L ALT (7-52) U/L Alkaline Phosphatase (34-104) U/L Total Protein (6.0-8.3) gm/dl Albumin (3.4-5.0) gm/dl Globulin (2.5-4.0) gm/dl Albumin/Globulin Ratio (0.9-2) Vancomycin Trough 26.1 H* (10-20) mcg/ml Miscellaneous Test 03/29/22 03/28/22 Range/Units 18:20 04:14 WBC (4.8-10.8) K/uL RBC (4.7-6.1) M/uL Hgb (14.0-18.0) g/dL Hct (42-52) % MCV (80-100) fL MCH (25-34) pg MCHC (32-36) g/dL RDW Std Deviation (36.4-46.3) fL RDW Coeff of Yenni (11.5-14.5) % Plt Count (130-400) K/uL MPV (7.4-10.4) fL Absolute Nucleated RBC (0-0) K/uL Nucleated RBC % (auto) % Platelet Estimate (Normal) PT (9.0-12.0) Seconds INR (0.9-1.1) APTT (21.0-31.0) Seconds PTT Ratio Sodium (136-145) mmol/L Potassium (3.5-5.1) mmol/L Chloride (98-107) mmol/L Carbon Dioxide (21-32) mmol/L Anion Gap (3-11) BUN (6-23) mg/dl Creatinine (0.6-1.4) mg/dl Est Cr Clr Drug Dosing ml/min Est GFR ( Amer) ml/min Est GFR (Non-Af Amer) ml/min BUN/Creatinine Ratio (10-20) Glucose (70-99(Fasting)) mg/dl POC Glucose 72 (70-99) mg/dl Calcium (8.5-10.1) mg/dl Total Bilirubin (0.2-1.0) mg/dl AST (13-39) U/L ALT (7-52) U/L Alkaline Phosphatase (34-104) U/L Total Protein (6.0-8.3) gm/dl Albumin (3.4-5.0) gm/dl Globulin (2.5-4.0) gm/dl Albumin/Globulin Ratio (0.9-2) Vancomycin Trough (10-20) mcg/ml Miscellaneous Test REPORT Diagnostic Findings MRCP: There are numerous gallstones within the gallbladder lumen. The gallbladder is distended, and the wall appears thickened. There is trace pericholecystic fluid. There is no intra or extrahepatic biliary ductal dilatation. The common bile duct measures up to 5.5 mm in diameter. There are small filling defects in the distal common bile duct consistent with choledocholithiasis. This was also seen by CT. The pancreatic duct is normal in caliber. There is a small volume of upper abdominal ascites as well as small pleural effusions. A 13.5 cm mass lesion is present in the right lobe of the liver. There is hypertrophy of the left lobe, with a 6 cm left lobe hepatic mass. The kidneys are atrophic and without hydronephrosis. Bilateral renal cysts measure up to 3.8 cm. The unenhanced spleen, adrenal glands, and pancreas are grossly unremarkable. The abdominal aorta is normal in caliber. No bowel obstruction is seen. No destructive bony lesion is identified. Multifocal pulmonary metastatic disease is present at the lung bases. The heart is enlarged. IMPRESSION: 1. Cholelithiasis within a distended and mildly thick-walled gallbladder. Acute cholecystitis is not excluded, and clinical/laboratory correlation will be required. A nuclear hepatobiliary scan could be considered if clinically warranted. 2. Choledocholithiasis. 3. There is no intra or extrahepatic biliary ductal dilatation. 4. There are large hepatic masses and evidence of multifocal pulmonary metastatic disease. Correlate with the patient's oncological history. 5. Small pleural effusions and small volume perihepatic ascites.
--- NOTE | 2022-03-30 15:28 | Anesthesiology Consultation ---
Date of Service March 30, 2022 Assessment & Plan Chart Review Chart Review: Acceptable Risk for Surgery and Patient NOT seen in Pre Admission Testing Pt was having Afib with RVR 03/28/22 Atrial fibrillation Patient tachycardic to the 110s on admission EKG showing atrial fibrillation with RVR -recieved home atenolol with additional 100mg atenolol, digoxin 250mcg Continue home atenolol hsTroponin 53.8 --> 49.4 -hold home eliquis, started heparin drip given elevated troponins possible demand ischemia -Echo normal EF, moderate concentric LVH, RA LA mildly dilated, elevated right systolic pressure -IVF NSS bolus 1L for concern of hypovolemia. follow History Surgery Operation Date: 03/31/22 07:00 Proposed Procedures p Endoscopic Retrograde Cholangiopancreato - Lary Almazan MD Height/Weight Height: 5 ft 9 in Weight: 112.1 kg Allergies Allergy/AdvReac Type Severity Reaction Status Date / Time No Known Allergies Allergy Verified 03/27/22 22:32 Medications Home Medications Medication Instructions Recorded Confirmed Last Taken alendronate 70 mg tablet mg PO 03/27/22 Unknown allopurinol 100 mg tablet mg 03/27/22 Unknown apixaban 5 mg tablet (Eliquis) mg BID 03/27/22 Unknown atenolol 100 mg tablet mg 03/27/22 Unknown esomeprazole magnesium 40 mg mg 03/27/22 Unknown capsule,delayed release furosemide 40 mg tablet mg 03/27/22 Unknown metformin 500 mg tablet,extended mg PO 03/27/22 Unknown release 24 hr oxycodone 5 mg tablet mg 03/27/22 Unknown quinapril 20 mg tablet mg 03/27/22 Unknown spironolactone 25 mg tablet mg 03/27/22 Unknown Active Medications Generic Name Dose Route Start Last Admin Trade Name Freq PRN Reason Stop Dose Admin Allopurinol 100 mg 03/28/22 09:00 03/30/22 08:14 Allopurinol 100 Mg Tab PO 04/27/22 08:59 100 mg DAILY YI Administration Atenolol 100 mg 03/27/22 22:45 03/30/22 08:14 Atenolol 50 Mg Tablet PO 04/26/22 22:44 100 mg BID YI Administration Piperacillin Sod/Tazobactam 120 mls @ 30 mls/hr 03/28/22 08:00 03/30/22 11:47 Sod 4.5 gm/ Dextrose IV 04/07/22 07:59 Infused Q8H YI Infusion Protocol Heparin Sodium/Dextrose 25,000 units in 500 mls @ 24 mls/hr 03/28/22 09:00 03/30/22 09:20 Heparin Sodium/Dextrose IV 04/27/22 08:59 1,200 units/hr .[id number] YI 24 mls/hr Titration Protocol 1,200 UNITS/HR Insulin Aspart 0 units 03/30/22 07:30 03/30/22 11:47 Insulin Aspart Per Unit SC 04/29/22 07:29 4 units ACHS YI Administration Lidocaine 1 patch 03/28/22 09:00 03/30/22 08:15 Lidocaine 5% 1 Patch TD 04/27/22 08:59 1 patch QAM YI Administration Melatonin 3 mg 03/27/22 21:47 03/29/22 21:10 Melatonin 3 Mg Tab PO 04/26/22 21:46 3 mg HS PRN Administration Sleep Miscellaneous 1 ea 03/28/22 21:00 03/29/22 21:11 Remove Lidoderm Patch N/A 04/27/22 20:59 1 ea DAILY@2100 YI Administration Oxycodone HCl 5 mg 03/27/22 21:53 03/30/22 13:42 Oxycodone Hcl Ir 5 Mg Tab (Immediate Release) PO 04/10/22 21:52 5 mg Q6H PRN Administration Pain Pantoprazole Sodium 40 mg 03/28/22 09:00 03/30/22 08:14 Pantoprazole 40 Mg Tab PO 04/27/22 08:59 40 mg QAM YI Administration Potassium Phosphate 1 tab 03/28/22 01:50 03/30/22 12:45 Pot Phosphate Monobasic W/ Sod Tab PO 04/27/22 01:49 1 tab QID YI Administration Spironolactone 25 mg 03/28/22 09:00 03/30/22 08:14 Spironolactone 25 Mg Tab PO 04/27/22 08:59 25 mg QAM YI Administration Past Medical History Medical History Anemia Atrial fibrillation Colorectal carcinoma Elevated bilirubin Hyperlipidemia Hypertension Liver metastases Lung metastases Obesity Obstructive sleep apnea Social History Smoking Status: Never smoker Hx Alcohol Use: Yes (Quit 2012) Hx Substance Use: No Physical Exam Vital Signs Last Vital Signs Temp 36.9 C 03/30/22 12:44 Pulse 100 H 03/30/22 12:44 Resp 18 03/30/22 12:58 BP 119/76 03/30/22 12:44 Pulse Ox 95 03/30/22 12:58 Testing Laboratory Results 03/30/22 05:36 03/30/22 05:36 PT 15.1 Seconds (9.0-12.0) H 03/30/22 05:36 INR 1.4 (0.9-1.1) H 03/30/22 05:36 APTT 54.5 Seconds (21.0-31.0) H* 03/30/22 05:36 Hemoglobin A1c 6.0 % (4.5-5.6) H 03/28/22 00:44 03/28/22 02:24 Aerobic Blood Culture - Preliminary Blood No growth in Aerobic bottle after 48 hours. Anaerobic Blood Culture - Preliminary No growth in Anaerobic bottle after 48 hours. 03/28/22 02:21 Aerobic Blood Culture - Preliminary Blood No growth in Aerobic bottle after 48 hours. Anaerobic Blood Culture - Preliminary No growth in Anaerobic bottle after 48 hours. 03/28/22 17:40 Fungal Smear - Final Blood 03/30/22 03/30/22 11:29 07:21 POC Glucose 121 H 187 H
[2022-03-30] MEDS ORDERED: FAMOTIDINE 20 MG TAB PO PRN (15:56)
[2022-03-30] MEDS: MELATONIN 3 MG TAB PO PRN (20:54)
[2022-03-30] MEDS ORDERED: APIXABAN 2.5 MG TAB PO SCH (21:00)
[2022-03-31 07:26] LABS: Albumin Globulin Ratio 0.9 (0.9-2); Albumin Level 2.3 gm/dl (3.4-5.0); BUN Creatinine Ratio 20.8 (10-20); Bilirubin,Total 14.7 mg/dl (0.2-1.0); Calcium 7.7 mg/dl (8.5-10.1); Creatinine Clr Calc Pharmacy 85.7 ml/min; Est GFR (African American) 87.6 ml/min; Est GFR (Non-African American) 75.5 ml/min; Globulin 2.6 gm/dl (2.5-4.0); Phosphorus 2.4 mg/dl (2.5-4.9); Potassium 3.3 mmol/L (3.5-5.1); Total Protein 4.9 gm/dl (6.0-8.3)
[2022-03-31 07:28] LABS: Hemoglobin 9.6 g/dL (14.0-18.0); Mean Corpuscular Hemoglobin 28.2 pg (25-34); Mean Platelet Volume 10.4 fL (7.4-10.4); Platelet Count 77 K/uL (130-400); RDW Coefficient of Variation 21.9 % (11.5-14.5); RDW Standard Deviation 69.3 fL (36.4-46.3); Red Blood Count 3.41 M/uL (4.7-6.1); White Blood Count 17.31 K/uL (4.8-10.8)
[2022-03-31 07:29] LABS: Platelet Estimate Decreased (Normal)
[2022-03-31] MEDS: INSULIN ASPART PER UNIT SC SCH ×4 (07:30→20:08)
[2022-03-31 07:55] LABS: INR 1.6 (0.9-1.1); Partial Thromboplastin Ratio 2.4; Prothrombin Time 16.8 Seconds (9.0-12.0)
[2022-03-31] MEDS: PIPERACILLIN/TAZOBACTAM 4.5 GM in DEXTROSE 5% 100 ML IV SCH ×2 (08:52→18:01)
[2022-03-31] MEDS: LIDOCAINE 5% 1 PATCH TD SCH (08:52)
[2022-03-31] MEDS: SPIRONOLACTONE 25 MG TAB PO SCH (08:54)
[2022-03-31] MEDS: POT PHOSPHATE MONOBASIC W/ SOD TAB PO SCH ×4 (08:54→20:08)
[2022-03-31] MEDS: allopurinoL 100 MG TAB PO SCH (08:54)
[2022-03-31] MEDS: PANTOprazole 40 MG TAB PO SCH (08:54)
[2022-03-31] MEDS: ATENOLOL 50 MG TABLET PO SCH ×2 (08:54→20:08)
--- NOTE | 2022-03-31 08:56 | Hospitalist Progress Note ---
Date of Service March 31, 2022 Assessment & Plan (1) Rib pain on right side: Plan: 71 yo male with a history of colorectal carcinoma with mets to the lung and liver (chemo q other week), atrial fibrillation (on Eliquis), HTN, HLD, T2DM, and FERNANDO presents as a transfer from [facility] with concern for choledocholithiasis after originally presenting to OSH with right-sided rib pain due to a mechanical fall. Severe leukocytosis - Discussed with oncology, likely leukemoid reaction Colorectal carcinoma with liver and lung mets Patient noted with hyperbilirubinemia to 9.2 and Alk Phos of 462 at OSH, in the setting of known liver mets, transferred to [facility] for GI consult and possible MRCP d/t concern for choledocholithiasis CT a/p (performed and read at OSH) notable for extensive hepatic metastatic disease, cholelithiasis imaging to be transferred to [facility] for overread Receives chemotherapy q2wks (last done Tuesday) managed by a [facility] oncologist Mild-moderate upper abdominal tenderness on exam -WBC downtrending -total bilirubin 14.7 Hyperbilirubinemia, transaminitis Choledocholithiasis Mild-moderate upper abdominal tenderness on exam CT a/p (performed and read at OSH) notable for extensive hepatic metastatic disease, cholelithiasis On arrival to [facility], labs notable for WBC 73.7, Hgb 9.7, INR 1.7, Ca 7.8 (ionized pending), phos 1.6, Tbili 9.8, AST 57, AlkPhos 392, albumin 2.7 Lactate level unable to be performed due to lab interference from hyperbilirubinemia Blood cultures negative 48hr GI consulted, ERCP today -MRCP:with choledocholithiasis . was on vanc/zosyn, vanc dc'd continue zosyn Trend daily CBC, CMP, PT/INR Rib pain secondary to mechanical fall Patient with mild right-sided chest wall tenderness after a mechanical fall at home (03/26) No acute fracture on CXR Pain control with patient's home oxycodone 5mg q6h prn; avoid Tylenol d/t hepatic pathology Incentive spirometry ordered -lidocaine patch, ibuprofen ordered Atrial fibrillation Patient tachycardic to the 110s on admission EKG showing atrial fibrillation with RVR - received home atenolol with additional 100mg atenolol, digoxin 250mcg Continue home atenolol hs Troponin 53.8 --> 49.4 - Eliquis held on admission, started heparin drip given elevated troponin possible demand ischemia --> heparin d/c'd 03/30 resumed Eliquis 5mg BID - Echo normal EF, moderate concentric LVH, RA LA mildly dilated, elevated right systolic pressure Hypophosphatemia Phosphate 1.6 on admission Potassium phosphate monobasic w/ sodium ordered, 1 tab qid Trend phos level Severe malnutrition - nutrition consult = PO as tolerated, add boost, replete electrolytes Anxiety -received 1mg Ativan without improvement -improved with morphine HTN BP well-controlled on admission Given the risk of hypotension with the additional atenolol dose (above), will hold home quinapril and lasix for now Continue home spironolactone DM2 Last HbA1c unknown, repeat level ordered Patient's home regimen held on admission Continue BSG checks, sliding-scale insulin, hypoglycemic protocol HLD: not on a statin; lipid profile wnl FERNANDO: not on CPAP/BiPAP at home FEN: NPO for MRCP Code status: DNR/DNI DVT ppx: heparin drip Held home meds: lasix, quinapril, metformin, alendronate, eliquis Consults: gastroenterology, oncology PT/OT: ordered Dispo: PCU Admission and Anticipated Discharge Date Admission Date: March 27, 2022 Supervising Physician Co-Signing Physician Notes Resident Physician Supervision Note: I independently interviewed and examined the patient and verified the jane history and physical, reviewed labs and image studies and agree with resident Dr. Han findings and care plan. Subjective Kody Weinberg is doing well today. He slept well overnight and denied fevers, chills, sweats, chest pain, palpitations, cough, shortness of breath. He admits some milde improved right sided abdominal pain. Review of Systems Review of Systems: per. HPI Physical Exam Physical Exam: Constitutional WD/WN, vitals as above Eyes normal visual leiva by confrontation, + scleral abnormality (icteric), PERRL and EOM intact bilaterally ENMT external ear and nose normal, oropharynx normal Neck trachea midline, no thyromegaly Respiratory normal respiratory effort, lungs clear to auscultation Cardiovascular Rate/Rhythm:+ irregularly irregular Heart Sounds:normal S1 and normal S2 Extremities:+ edema (+1 pitting edema b/l ankles with chronic venous stasis) Chest (Breasts) Chest:+ vascular access device or port (on left) Gastrointestinal (Abdomen) Inspection/Auscultation:abdomen normal to inspection and normal bowel sounds Percussion/Palpation:+ abdomen tender (at RUQ and epigastric) and abdomen soft; no ascites Neurologic no focal deficit Results & Data Results & Data ([facility]) Vital Signs (Past 12 Hours) Vital Signs Temp Pulse Pulse Resp BP Pulse Ox 03/31/22 07:30 36.8 C 106 H 19 130/79 98 03/31/22 05:07 95 H 03/31/22 03:11 37.6 C H 131 H 20 121/75 98 03/30/22 23:55 37.4 C 117 H 20 133/78 96 CBC Results Results Complete Blood Count Results: RBC 3.41 M/uL (4.7-6.1) L 03/31/22 WBC 17.31 K/uL (4.8-10.8) H 03/31/22 Hgb 9.6 g/dL (14.0-18.0) L 03/31/22 Hct 30.0 % (42-52) L 03/31/22 Plt Count 77 K/uL (130-400) L 03/31/22 Resident Activity Tracking Resident Involvement: Resident Care Provided Care Provided: Adult Hospital Medicine
[2022-03-31] MEDS ORDERED: PROPOFOL IV EMULSION 10 MG/ML 20 ML VIAL IV ONE (12:37)
[2022-03-31] MEDS ORDERED: SUCCINYLCHOLINE CHLORIDE 20 MG/ML 10 ML VIAL IV ONE (12:37)
[2022-03-31] MEDS ORDERED: LIDOCAINE 2% 2 ML VIAL/AMP(20MG/ML) INFIL ONE (12:37)
--- NOTE | 2022-03-31 14:22 | History & Physical Bridge Note ---
Date of Service March 31, 2022 History & Physical Bridge Note I have examined the patient, reviewed the History & Physical and in the interval since the performance of the History & Physical I have noted the following changes of clinical significance: no changes noted ERCP today Patient was explained in detail regarding risks, benefits, limitations and alternatives of the above endoscopic procedure. Risks of intravenous sedation used for procedure were also explained. Risks include, but not limited to perfor ation, bleeding, infection, respiratory distress, cardiac arrest and . Patient is also aware about the possibility of missed lesion. Patient's questions were answered. The patient verbalized understanding the information and agreed to undergo the procedure.
[2022-03-31] MEDS ORDERED: MIDAZOLAM HCL 1 MG/ML 2ML VIAL ONE (16:17)
[2022-03-31] MEDS ORDERED: fentaNYL citrate 100 MCG/2 ML VIAL ONE (16:18)
[2022-03-31] MEDS ORDERED: fentaNYL citrate 100 MCG/2 ML VIAL IV PRN (16:19)
[2022-03-31] MEDS ORDERED: ePHEDrine sulfate 50 MG/ML AMP IV PRN (16:19)
[2022-03-31] MEDS ORDERED: ONDANSETRON INJ 2 MG/ML 2 ML VIAL IV PRN (16:19)
[2022-03-31] MEDS ORDERED: ATROPINE SULFATE 0.1 MG/ML 10ML SYR IV PRN (16:19)
[2022-03-31] MEDS ORDERED: METOPROLOL TARTRATE 1 MG/ML VIAL IV ONE (16:47)
--- NOTE | 2022-03-31 16:54 | Operative Report ---
Post Operative Report Pre & Post Diagnosis Operation Date: 03/31/22 07:00 Pre-Op Diagnosis: Elevated bilirubin, colorectal carcinoma, liver metastases, and choledocholithiasis. Post-Op Diagnosis: Choledocholithiasis. I identified the patient and participated in the time-out.: Yes Procedure Operation Date: 03/31/22 07:00 Actual Procedures p Endoscopic retrograde cholangiopancreatography. - Lary Almazan MD Surgeon Lary Almazan MD Oil Heater Installer None Estimated Blood Loss 0 Findings See Below (Choledocholithiasis with cholangitis) Specimens None Description of Procedure ERCP I attest to the content of the Intraoperative Record and any orders documented therein. Any exceptions are noted below.
--- NOTE | 2022-03-31 17:07 | GI REPORT ---
Patient Name: Kody Weinberg Procedure Date: 03/31/2022 3:29 PM Date of : 1950 Admit Type: Inpatient Age: 71 Gender: Male Attending MD: Lary Almazan MD Procedure: Upper GI endoscopy Providers: Lary Almazan MD Referring MD: Mina Dunn Md Indications: Abdominal pain Medicines: Propofol per Anesthesia Complications: No immediate complications. Estimated Blood Loss: Estimated blood loss: none. Procedure: Pre-Anesthesia Assessment: - Prior to the procedure, a History and Physical was performed, and patient medications, allergies and sensitivities were reviewed. The patient's tolerance of previous anesthesia was reviewed. - The risks and benefits of the procedure and the sedation options and risks were discussed with the patient. All questions were answered and informed consent was obtained. - Patient identification and proposed procedure were verified prior to the procedure by the physician and the nurse. The procedure was verified in the procedure room. - Pre-procedure physical examination revealed no contraindications to sedation. After obtaining informed consent, the endoscope was passed under direct vision. Throughout the procedure, the patient's blood pressure, pulse, and oxygen saturations were monitored continuously. The Endoscope was introduced through the mouth, and advanced to the second part of duodenum. The upper GI endoscopy was accomplished without difficulty. The patient tolerated the procedure well. Findings: The examined esophagus was normal. The entire examined stomach was normal. The duodenal bulb and second portion of the duodenum were normal. Impression: - Normal esophagus. - Normal stomach. - Normal duodenal bulb and second portion of the duodenum. - No specimens collected. Recommendation: - Perform an ERCP today. Lary Almazan MD 03/31/2022 5:06:46 PM This report has been signed electronically. Note Initiated On: 03/31/2022 3:29 PM Number of Addenda: 0 I attest to the content of the Intraoperative Record and orders documented therein, exceptions below {[id number]}
--- NOTE | 2022-03-31 17:15 | Fluoroscopy Report ---
INTRAOPERATIVE RADIOGRAPHS CLINICAL HISTORY: ERCP. Fluoroscopy time: 64 seconds. FINDINGS: 10 spot fluoroscopic views of the right upper quadrant from an ERCP procedure are presented . Correlation is made with MRCP dated 03/29/2022. A catheter is placed within the common bile duct whi ch was then opacified by contrast. Intraluminal filling defects are typical for choledocholithiasis. A balloon sweep of the common duct is performed. No filling defects are shown on the final images. A common bile duct stent is placed. IMPRESSION: Intraoperative ERCP images as above. See operative report for detailed findings. Electronically signed by: Zhao Ramirez M.D. 03/31/2022 5:13 PM
--- NOTE | 2022-03-31 17:17 | GI REPORT ---
Patient Name: Kody Weinberg Procedure Date: 03/31/2022 4:36 PM Date of : 1950 Admit Type: Inpatient Age: 71 Gender: Male Attending MD: Lary Almazan MD Procedure: ERCP Providers: Lary Almazan MD Referring MD: Mina Dunn Md Indications: Abnormal MRCP, For therapy of bile duct stone(s) Medicines: General Anesthesia Complications: No immediate complications. Estimated Blood Loss: Estimated blood loss: none. Procedure: Pre-Anesthesia Assessment: - Prior to the procedure, a History and Physical was performed, and patient medications, allergies and sensitivities were reviewed. The patient's tolerance of previous anesthesia was reviewed. - The risks and benefits of the procedure and the sedation options and risks were discussed with the patient. All questions were answered and informed consent was obtained. - Patient identification and proposed procedure were verified prior to the procedure by the physician and the nurse. The procedure was verified in the procedure room. - Pre-procedure physical examination revealed no contraindications to sedation. After obtaining informed consent, the scope was passed under direct vision. Throughout the procedure, the patient's blood pressure, pulse, and oxygen saturations were monitored continuously. The Duodenoscope was introduced through the mouth, and advanced to the duodenum and used to inject contrast into the bile duct. The ERCP was accomplished without difficulty. The patient tolerated the procedure well. Findings: The car tester film was normal. The esophagus was successfully intubated under direct vision. The scope was advanced to a normal major papilla in the descending duodenum without detailed examination of the pharynx, larynx and associated structures, and upper GI tract. The upper GI tract was grossly normal. A 0.035 inch straight standard wire was passed into the biliary tree. The Fusion OMNI sphincterotome was passed over the guidewire and the bile duct was then deeply cannulated. Contrast was injected. I personally interpreted the bile duct images. Ductal flow of contrast was adequate. Image quality was adequate. Contrast extended to the main bile duct. Opacification of the main bile duct was successful. The maximum diameter of the ducts was 8 mm. Severe right sided intrahepatic ductal irregularities due to infiltration by a large liver metastasis. Biliary sphincterotomy was made with a monofilament traction (standard) sphincterotome using ERBE electrocautery. There was no post-sphincterotomy bleeding. The biliary tree was swept with a 12 mm balloon starting at the bifurcation. Many stones were removed. No stones remained. Pus was swept from the duct. One 10 Fr by 8 cm plastic biliary stent with a single external flap and a single internal flap was placed into the common bile duct. Bile flowed through the stent. The stent was in good position. Impression: - Choledocholithiasis was found. Complete removal was accomplished by biliary sphincterotomy and balloon extraction. - Acute Cholangitis. - One plastic biliary stent was placed into the common bile duct. Recommendation: - [facility] patient [facility] for [facility] care. - Repeat ERCP in 6 weeks to remove stent. - Surgery consult to discuss cholecystectomy, would consider Axios stent drainage as OP if not a surgical candidate. - Complete a 7 days course of ABx. - Recall GI if needed. Lary Almazan MD 03/31/2022 5:16:27 PM This report has been signed electronically. Note Initiated On: 03/31/2022 4:36 PM Number of Addenda: 0 I attest to the content of the Intraoperative Record and orders documented therein, exceptions below {[id number]}
[2022-03-31] MEDS ORDERED: LARYING-O-JET KIT (LTA) ONE (17:50)
--- NOTE | 2022-03-31 19:05 | Anesthesiology Progress Note ---
Date of Service March 31, 2022 Anesthesia Post Procedure Vital Signs Vital Signs: Temp Pulse Pulse Pulse Resp BP BP 03/31/22 17:54 97.5 F L 107 H 24 113/77 03/31/22 17:40 97.3 F L 114 H 22 112/83 03/31/22 17:30 107 H 25 H 105/66 03/31/22 17:20 112 H 26 H 109/65 03/31/22 17:10 114 H 26 H 98/71 L 03/31/22 17:03 98.4 F 108 H 29 H 111/77 03/31/22 15:30 98.8 F 100 H 16 154/86 H 122/81 03/31/22 14:52 96 H 03/31/22 11:17 98.1 F 105 H 18 125/83 03/31/22 10:21 107 H 03/31/22 07:30 98.2 F 106 H 19 130/79 03/31/22 05:07 95 H 03/31/22 03:11 99.7 F H 131 H 20 121/75 03/30/22 23:55 99.3 F 117 H 20 133/78 03/30/22 19:09 98.4 F 106 H 20 154/81 H Pulse Ox 03/31/22 17:54 98 03/31/22 17:40 97 03/31/22 17:30 96 03/31/22 17:20 98 03/31/22 17:10 96 03/31/22 17:03 97 03/31/22 15:30 100 03/31/22 14:52 03/31/22 11:17 100 03/31/22 10:21 03/31/22 07:30 98 03/31/22 05:07 03/31/22 03:11 98 03/30/22 23:55 96 03/30/22 19:09 96 Pain Intensity Right Other: Pain Intensity: 5 Transfer of Care Handoff Completed per policy Notes Mental Status: alert / awake / arousable and participated in evaluation Patient Amnestic to Procedure: Yes Nausea / Vomiting: adequately controlled Pain: adequately controlled Airway Patency, RR, SpO2: stable & adequate BP & HR: stable & adequate Hydration State: stable & adequate Anesthetic Complications: no major complications apparent and Pt Satisfied with anesthetic care
--- NOTE | 2022-03-31 21:01 | Surgery Consultation ---
Date of Consultation March 31, 2022 Assessment & Plan (1) Cholelithiasis: General surgery has been asked to evaluate the patient to see if he is a surgical candidate. Patient has multiple comorbidities. One of the most notable comorbidities this is colorectal cancer and the fact that he is currently receiving chemotherapy. He is also fully anticoagulated with Eliquis due to history of atrial fibrillation. With these comorbidities the patient will be a high surgical risk. We would recommend the patient undergo a less invasive procedure such as Axios stent by gastroenterology. History of Present Illness Reason for Consultation: Cholelithiasis Attending Physician: Aminta Broussard MD History of Present Illness This is a 71-year-old male who presented to [facility] on transfer from [facility] for concern for choledocholithiasis. Patient notes that he was having some right-sided abdominal pain but he felt that this was secondary to rib pain as he recently suffered a mechanical fall. Patient denies any nausea or vomiting. He also did not report any fever shakes or chills. Due to concern for choledocholithiasis GI was consulted. Earlier today the patient did undergo an ERCP at which time choledocholithiasis was confirmed. Gallstones were completely removed from the biliary tree and a sphincterotomy was performed. A biliary stent was placed. It is noteworthy to mention that the patient has an underlying history of colorectal cancer. The patient says he is currently undergoing chemotherapy and his next chemotherapy session he notes is scheduled for 04/06/2022. Patient also has an underlying history of atrial fibrillation and he takes Eliquis for this. Since admission to the hospital the patient has had the following imaging which I independently reviewed. Chest x-ray showed numerous nodular densities in the lung which were felt to be consistent with metastatic disease. There is multifocal airspace disease which could have represented atelectasis and pneumonia. A CT scan of the chest showed no evidence of pulmonary emboli but again various nodular densities were noted felt to be consistent with metastatic disease. There are small bilateral pleural effusions. An MRCP was performed that showed cholelithiasis with a distended thick-walled gallbladder possibly representing cholecystitis. Choledocholithiasis was noted. Patient was also noted to have a large hepatic mass. Small volume perihepatic ascites was also noted. Most recent labs include a CBC from today which revealed a white blood cell count of 17.3. His hemoglobin and hematocrit were 9.6 and 30.0. Platelet count was 77,000. Patient's INR is noted to be 1.6. Chemistry profile showed sodium and potassium of 134 and 3.3 respectively. His BUN and creatinine were both normal. His total bilirubin was elevated at 14.7. His AST was elevated at 74 with a normal ALT. Alkaline phosphatase was elevated at 536. It is nowhere the mention that at time of mission the patient's white blood cell count was 73.67. At the time of my interview the patient was resting comfortably in bed. He did note he was in no discomfort at the time of my interview. Allergies Allergy/AdvReac Type Severity Reaction Status Date / Time No Known Allergies Allergy Verified 03/27/22 22:32 Home Medications Medication Instructions Recorded Confirmed Type alendronate 70 mg tablet mg PO 03/27/22 History allopurinol 100 mg tablet mg 03/27/22 History apixaban 5 mg tablet (Eliquis) mg BID 03/27/22 History atenolol 100 mg tablet mg 03/27/22 History esomeprazole magnesium 40 mg mg 03/27/22 History capsule,delayed release furosemide 40 mg tablet mg 03/27/22 History metformin 500 mg tablet,extended mg PO 03/27/22 History release 24 hr oxycodone 5 mg tablet mg 03/27/22 History quinapril 20 mg tablet mg 03/27/22 History spironolactone 25 mg tablet mg 03/27/22 History Patient History Medical History Anemia Atrial fibrillation Colorectal carcinoma Elevated bilirubin Hyperlipidemia Hypertension Liver metastases Lung metastases Obesity Obstructive sleep apnea Social History Smoking Status: Never smoker Hx Alcohol Use: Yes (Quit 2012) Hx Substance Use: No Preferred Language: Azeri Communication Ability: Effective 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 Beliefs That Will Affect Care: None Current Living Situation: Spouse Feels Safe at Home: Yes Assistive Devices: Walker Review of Systems Constitutional: no fever Eyes: no eye pain Ear, Nose, Mouth, Throat: no ear pain Respiratory: no cough Cardiovascular: no chest pain Gastrointestinal: + abdominal pain Genitourinary: no dysuria Musculoskeletal: no back pain Integumentary: no rash Neurologic: no localized weakness Physical Exam Constitutional: no acute distress Eyes: Scleral jaundice noted ENMT: Ears: no hearing impairment Neck: trachea midline Respiratory: normal respiratory effort; no respiratory distress and no labored breathing Cardiovascular: Rate/Rhythm: regular rate and regular rhythm Gastrointestinal (Abdomen): Abdomen is rotund and soft. It is nonrigid. There is minimal to no pain with palpation specifically in the right upper quadrant. Musculoskeletal: No calf tenderness Skin: normal turgor Neurologic: moves all extremities Psychiatric: Orientation: alert and oriented x 3 Affect: + flat affect Results & Data ([facility]) Vital Signs (Past 12 Hours) Vital Signs Temp Pulse Pulse Pulse Resp BP BP 03/31/22 19:07 36.4 C L 124 H 14 123/84 03/31/22 17:54 36.4 C L 107 H 24 113/77 03/31/22 17:40 36.3 C L 114 H 22 112/83 03/31/22 17:30 107 H 25 H 105/66 03/31/22 17:20 112 H 26 H 109/65 03/31/22 17:10 114 H 26 H 98/71 L 03/31/22 17:03 36.9 C 108 H 29 H 111/77 03/31/22 15:30 37.1 C 100 H 16 154/86 H 122/81 03/31/22 14:52 96 H 03/31/22 11:17 36.7 C 105 H 18 125/83 03/31/22 10:21 107 H Pulse Ox 03/31/22 19:07 98 03/31/22 17:54 98 03/31/22 17:40 97 03/31/22 17:30 96 03/31/22 17:20 98 03/31/22 17:10 96 03/31/22 17:03 97 03/31/22 15:30 100 03/31/22 14:52 03/31/22 11:17 100 03/31/22 10:21 PG Care Time/CCT Total # of Minutes Spent Total Time Spent with Patient: Total time spent is greater than 50% in coordination of care (as documented) at patient's floor/unit and/or counseling patient: Coding Level of Care Code 99885 Inpt Consult Level 5 Diagnoses Cholelithiasis K80.20
[2022-04-01] MEDS: PIPERACILLIN/TAZOBACTAM 4.5 GM in DEXTROSE 5% 100 ML IV SCH ×2 (01:47→10:13)
[2022-04-01] MEDS ORDERED: MoRPHine SULFATE 2 MG/ML CARP IV STA (04:54)
[2022-04-01 08:16] LABS: Mean Corpuscular Hgb Conc 31.3 g/dL (32-36)
[2022-04-01 08:21] LABS: Hematocrit (blood only) 34.2 % (42-52); Hemoglobin 10.7 g/dL (14.0-18.0); Mean Corpuscular Hemoglobin 27.4 pg (25-34); Mean Corpuscular Volume 87.5 fL (80-100); RDW Coefficient of Variation 22.6 % (11.5-14.5); RDW Standard Deviation 69.3 fL (36.4-46.3); Red Blood Count 3.91 M/uL (4.7-6.1); White Blood Count 12.94 K/uL (4.8-10.8)
[2022-04-01 08:24] LABS: INR 1.7 (0.9-1.1); Prothrombin Time 17.8 Seconds (9.0-12.0)
[2022-04-01 08:25] LABS: Platelet Count 73 K/uL (130-400)
[2022-04-01 08:39] LABS: Albumin Globulin Ratio 0.9 (0.9-2); Albumin Level 2.3 gm/dl (3.4-5.0); Bilirubin,Total 15.7 mg/dl (0.2-1.0); Calcium 8.2 mg/dl (8.5-10.1); Creatinine Clr Calc Pharmacy 84.9 ml/min; Est GFR (African American) 88.6 ml/min; Est GFR (Non-African American) 76.5 ml/min; Globulin 2.7 gm/dl (2.5-4.0); Potassium 3.4 mmol/L (3.5-5.1)
[2022-04-01 08:59] LABS: Anisocytosis Present; Basophils # (auto) 0.02 K/uL (0-0.2); Basophils % (auto) 0.2 %; Eosinophils # (auto) 0.05 K/uL (0-0.5); Eosinophils % (auto) 0.4 %; Immature Granulocytes # (auto) 0.06 K/uL (0.00-0.02); Immature Granulocytes % (auto) 0.5 %; Monocytes # (auto) 0.74 K/uL (0.11-0.59); Monocytes % (auto) 5.7 %; Neutrophils # (auto) 10.77 K/uL (1.4-6.5); Neutrophils % (auto) 83.2 %; Platelet Estimate Decreased (Normal); Polychromasia 1+
[2022-04-01] MEDS ORDERED: APIXABAN 2.5 MG TAB PO SCH (09:00)
[2022-04-01] MEDS ORDERED: PHYTONADIONE 10 MG in DEXTROSE 5% 50 ML IV STA (09:04)
[2022-04-01] MEDS: INSULIN ASPART PER UNIT SC SCH ×3 (09:26→16:31)
[2022-04-01] MEDS: SPIRONOLACTONE 25 MG TAB PO SCH (09:27)
[2022-04-01] MEDS: ATENOLOL 50 MG TABLET PO SCH (09:27)
[2022-04-01] MEDS: POT PHOSPHATE MONOBASIC W/ SOD TAB PO SCH ×2 (09:27→11:51)
[2022-04-01] MEDS: allopurinoL 100 MG TAB PO SCH (09:27)
[2022-04-01] MEDS: PANTOprazole 40 MG TAB PO SCH (09:27)
[2022-04-01] MEDS: LIDOCAINE 5% 1 PATCH TD SCH (09:29)
[2022-04-01] MEDS: oxyCODONE HCL IR 5 MG TAB (IMMEDIATE RELEASE) PO PRN (09:32)
--- NOTE | 2022-04-01 10:25 | Hospitalist Progress Note ---
Date of Service April 01, 2022 Assessment & Plan (1) Rib pain on right side: Plan: 71 yo male with a history of colorectal carcinoma with mets to the lung and liver (chemo q other week), atrial fibrillation (on Eliquis), HTN, HLD, T2DM, and FERNANDO presents as a transfer from [facility] with concern for choledocholithiasis after originally presenting to OSH with right-sided rib pain due to a mechanical fall. Severe leukocytosis - Discussed with oncology, likely leukemoid reaction Colorectal carcinoma with liver and lung mets Patient noted with hyperbilirubinemia to 9.2 and Alk Phos of 462 at OSH, in the setting of known liver mets, transferred to [facility] for GI consult and possible MRCP d/t concern for choledocholithiasis CT a/p (performed and read at OSH) notable for extensive hepatic metastatic disease, cholelithiasis imaging to be transferred to [facility] for overread Receives chemotherapy q2wks (last done Tuesday) managed by a [facility] oncologist Mild-moderate upper abdominal tenderness on exam -WBC downtrending -total bilirubin 15.7 Choledocholithiasis with Hyperbilirubinemia, transaminitis Mild-moderate upper abdominal tenderness on exam CT a/p (performed and read at OSH) notable for extensive hepatic metastatic disease, cholelithiasis On arrival to [facility], labs notable for WBC 73.7, Hgb 9.7, INR 1.7, Ca 7.8 (ionized pending), phos 1.6, Tbili 9.8, AST 57, AlkPhos 392, albumin 2.7 Lactate level unable to be performed due to lab interference from hyperbilirubinemia Blood cultures negative 48hr -MRCP:with choledocholithiasis . GI consulted, ERCP 03/31 with stone removal and stent placement, noted acute cholangitis INR 1.7; gave Vit K 10 mg IV to reverse; decrease risk of bleeding Please hold Eliquis x 3 days Repeat ERCP 6 weeks for CBD stent removal, possible Axios stent placement -Surgery consulted, patient high risk for cholecystectomy due to cancer and chemo, suggest axios stent placement instead was on vanc/zosyn,switched to cipro 500mg BID+flagyl 500 TID for 5 days total post ERCP (end 02/03) per guidelines for acute cholangitis Trend daily CBC, CMP, PT/INR Transportation Difficulties -contacted [facility] to see if they can perform followup 6 week ERCP with possible stent placement, awaiting return call Rib pain secondary to mechanical fall Patient with mild right-sided chest wall tenderness after a mechanical fall at home (03/26) No acute fracture on CXR Pain control with patient's home oxycodone 5mg q6h prn; avoid Tylenol d/t hepatic pathology Incentive spirometry ordered -lidocaine patch, ibuprofen ordered Atrial fibrillation Patient tachycardic to the 110s on admission EKG showing atrial fibrillation with RVR - received home atenolol with additional 100mg atenolol, digoxin 250mcg Continue home atenolol hs Troponin 53.8 --> 49.4 - Eliquis held until 3 days post ERCP,resume 04/03 -INR 17.8, recieved vitamin K, recheck am - Echo normal EF, moderate concentric LVH, RA LA mildly dilated, elevated right systolic pressure Hypophosphatemia Phosphate 1.6 on admission Potassium phosphate monobasic w/ sodium ordered, 1 tab qid Trend phos level Severe malnutrition - nutrition consult = PO as tolerated, add boost, replete electrolytes Anxiety -received 1mg Ativan without improvement -improved with morphine HTN BP well-controlled on admission Given the risk of hypotension with the additional atenolol dose (above), will hold home quinapril and lasix for now Continue home spironolactone DM2 Last HbA1c unknown, repeat level ordered Patient's home regimen held on admission Continue BSG checks, sliding-scale insulin, hypoglycemic protocol HLD: not on a statin; lipid profile wnl FERNANDO: not on CPAP/BiPAP at home FEN: clear liquid diet carb consistent low sodium Code status: DNR/DNI DVT ppx: heparin drip Held home meds: lasix, quinapril, metformin, alendronate, eliquis Consults: gastroenterology, oncology PT/OT: ordered, recommend home health Dispo: PCU Admission and Anticipated Discharge Date Admission Date: March 27, 2022 Subjective Patient seen at bedside, calm comfortable cooperative, slightly grumpy due to NPO status. Patient understands his ERCP procedure went well, he continues to need antibiotics at this time. Patient states he will have difficulty attending any follow up after discharge at [facility] due to transportation issues, wonders if followup can be closer. He states his right sided pain is well controlled at this time. No acute concerns noted. Review of Systems Review of Systems: Negative fever chills Negative headache dizziness Negative chest pain palpitations SOB Negative nausea vomitting diarrhea constipation Negative numbness tingling rash swelling Physical Exam Constitutional: WD/WN, vitals as above Eyes: normal visual leiva by confrontation, + scleral abnormality (icteric), PERRL and EOM intact bilaterally ENMT: external ear and nose normal, oropharynx normal Neck: trachea midline, no thyromegaly Respiratory: normal respiratory effort, lungs clear to auscultation Cardiovascular: Rate/Rhythm: + irregularly irregular Heart Sounds: normal S1 and normal S2 Extremities: + edema (+1 pitting edema b/l ankles with chronic venous stasis) Chest (Breasts): Chest: + vascular access device or port (on left) Gastrointestinal (Abdomen): Inspection/Auscultation: abdomen normal to inspection and normal bowel sounds Percussion/Palpation: + abdomen tender (at RUQ and epigastric) and abdomen soft; no ascites Skin: no rashes, warm and dry Neurologic: CN's II-XI intact bilaterally Results & Data Results & Data ([facility]) Vital Signs (Past 12 Hours) Vital Signs Temp Pulse Pulse Resp BP Pulse Ox 04/01/22 07:14 36.7 C 110 H 16 129/84 100 04/01/22 03:40 104 H 04/01/22 03:05 36.4 C L 106 H 16 125/80 100 03/31/22 23:25 36.4 C L 112 H 20 120/80 100 Diagnostic Findings Laboratory Results WBC 12.94 K/uL (4.8-10.8) H 04/01/22 07:42 RBC 3.91 M/uL (4.7-6.1) L 04/01/22 07:42 Hgb 10.7 g/dL (14.0-18.0) L 04/01/22 07:42 Hct 34.2 % (42-52) L 04/01/22 07:42 MCV 87.5 fL (80-100) 04/01/22 07:42 MCH 27.4 pg (25-34) 04/01/22 07:42 MCHC 31.3 g/dL (32-36) L 04/01/22 07:42 RDW Std Deviation 69.3 fL (36.4-46.3) H 04/01/22 07:42 RDW Coeff of Yenni 22.6 % (11.5-14.5) H 04/01/22 07:42 Plt Count 73 K/uL (130-400) L 04/01/22 07:42 MPV 10.4 fL (7.4-10.4) 03/31/22 06:40 Immature Gran % (Auto) 0.5 % 04/01/22 07:42 Neut % (Auto) 83.2 % 04/01/22 07:42 Lymph % (Auto) 10.0 % 04/01/22 07:42 [place] % (Auto) 5.7 % 04/01/22 07:42 Eos % (Auto) 0.4 % 04/01/22 07:42 Baso % (Auto) 0.2 % 04/01/22 07:42 Neut # (Auto) 10.77 K/uL (1.4-6.5) H 04/01/22 07:42 Lymph # (Auto) 1.30 K/uL (1.2-3.4) 04/01/22 07:42 [place] # (Auto) 0.74 K/uL (0.11-0.59) H 04/01/22 07:42 Eos # (Auto) 0.05 K/uL (0-0.5) 04/01/22 07:42 Baso # (Auto) 0.02 K/uL (0-0.2) 04/01/22 07:42 Immature Gran # (Auto) 0.06 K/uL (0.00-0.02) H 04/01/22 07:42 Absolute Nucleated RBC 0.03 K/uL (0-0) H 03/30/22 05:36 Nucleated RBC % (auto) 0.1 % 03/30/22 05:36 Blood Smear Review Cancelled 03/28/22 00:44 Toxic Granulation 1+ 03/28/22 04:14 Dohle Bodies 2+ 03/28/22 04:14 Platelet Estimate Decreased (Normal) L 04/01/22 07:42 Polychromasia 1+ 04/01/22 07:42 Hypochromasia Present 03/28/22 04:14 Anisocytosis Present 04/01/22 07:42 Echinocytes 1+ 03/28/22 04:14 Peripher Smr Path Cons 03/28/22 04:14 PT 17.8 Seconds (9.0-12.0) H 04/01/22 07:42 INR 1.7 (0.9-1.1) H 04/01/22 07:42 APTT 65.0 Seconds (21.0-31.0) H* 03/31/22 06:40 PTT Ratio 2.4 03/31/22 06:40 Sodium 137 mmol/L (136-145) 04/01/22 07:42 Potassium 3.4 mmol/L (3.5-5.1) L 04/01/22 07:42 Chloride 102 mmol/L (98-107) 04/01/22 07:42 Carbon Dioxide 28 mmol/L (21-32) 04/01/22 07:42 Anion Gap 7 (3-11) 04/01/22 07:42 BUN 21 mg/dl (6-23) 04/01/22 07:42 Creatinine 1.00 mg/dl (0.6-1.4) 04/01/22 07:42 Est Cr Clr Drug Dosing 84.9 ml/min 04/01/22 07:42 Est GFR ( Amer) 88.6 ml/min 04/01/22 07:42 Est GFR (Non-Af Amer) 76.5 ml/min 04/01/22 07:42 BUN/Creatinine Ratio 21.0 (10-20) H 04/01/22 07:42 Glucose 108 mg/dl (70-99(Fasting)) H 04/01/22 07:42 POC Glucose 117 mg/dl (70-99) H 04/01/22 11:38 Estimat Average Glucose 126 mg/dl 03/28/22 00:44 Hemoglobin A1c 6.0 % (4.5-5.6) H 03/28/22 00:44 Lactate TNP 03/27/22 22:30 Calcium 8.2 mg/dl (8.5-10.1) L 04/01/22 07:42 Ionized Calcium 1.08 mmol/L (1.12-1.32) L 03/28/22 02:21 Phosphorus 2.4 mg/dl (2.5-4.9) L 03/31/22 06:40 Magnesium 2.0 mg/dl (1.7-2.4) 03/31/22 06:40 Total Bilirubin 15.7 mg/dl (0.2-1.0) H 04/01/22 07:42 AST 88 U/L (13-39) H 04/01/22 07:42 ALT 51 U/L (7-52) 04/01/22 07:42 Alkaline Phosphatase 579 U/L (34-104) H 04/01/22 07:42 Troponin I High Sens 49.4 pg/ml (0-20) H 03/28/22 17:40 Total Protein 5.0 gm/dl (6.0-8.3) L 04/01/22 07:42 Albumin 2.3 gm/dl (3.4-5.0) L 04/01/22 07:42 Globulin 2.7 gm/dl (2.5-4.0) 04/01/22 07:42 Albumin/Globulin Ratio 0.9 (0.9-2) 04/01/22 07:42 Triglycerides 94 mg/dl (0-150) 03/28/22 04:14 Cholesterol mg/dl (0-200) 03/28/22 04:14 LDL Cholesterol, Calc mg/dl 03/28/22 04:14 VLDL Cholesterol, Calc 19 mg/dl (0-30) 03/28/22 04:14 HDL Cholesterol 12 mg/dl 03/28/22 04:14 Cholesterol/HDL Ratio (0-5) 03/28/22 04:14 Lipase 5 U/L (11-82) L 03/27/22 22:30 Nasal Screen MRSA (PCR) Negative (Negative) 03/28/22 10:43 Vancomycin Trough 26.1 mcg/ml (10-20) H* 03/30/22 01:27 Miscellaneous Test REPORT 03/28/22 04:14 Impressions Chest X-Ray 03/27/22 23:19 XR chest 1V portable CLINICAL HISTORY: rib pain 2/2 fall TECHNIQUE: Single frontal radiograph of the chest was obtained. Comparison: None available at the time of this dictation. FINDINGS: A right port catheter is seen. The cardiomediastinal silhouette is normal. Numerous nodular densities are seen in the lungs. There are scattered airspace opacities. No evidence of pleural effusion or pneumothorax. IMPRESSION: Numerous nodular densities are seen in the lung compatible with metastatic disease. Multifocal airspace disease is seen which may represent atelectasis, pneumonia, and/or aspiration. ACT 112: Negative or not required by law. Electronically signed by: Dat Garcia M.D. 03/28/2022 8:08 AM Chest CTA 03/28/22 04:17 CT angio chest PE protocol CLINICAL HISTORY: PE TECHNIQUE: Multidetector row helical CT of the chest was performed with angiographic protocol. Coronal and sagittal reformations were obtained. Coronal and sagittal MIPS were obtained from the axial data set and were submitted for review. Automated dose lowering techniques and/or adjustment according to patient size were utilized for this exam. CT DOSE: 671.39 mGy.cm Comparison: Comparison is made to chest radiograph 03/27/2022 FINDINGS: Lungs and pleura: Innumerable nodular densities are seen throughout the lungs. There are small bilateral pleural effusions with associated atelectasis. A few groundglass foci are seen. Heart and pericardium: There is cardiomegaly without evidence of pericardial effusion. Vessels: No evidence of pulmonary embolism. Mediastinum and caitie: Subcentimeter lymph nodes are seen. Chest wall and lower neck: No evidence Abdomen: There is suggestion of inhomogeneity throughout the liver. Bones: Degenerative changes in the thoracic spine. IMPRESSION: 1. No evidence of pulmonary embolism. 2. Innumerable nodular densities are seen throughout the lung concerning for metastatic disease of unknown primary. 3. Small bilateral pleural effusions. 4. Groundglass foci may represent infectious/inflammatory process or developing nodules. 5. There is suggestion of hypodensities in the liver, this may be artifactual, however hepatic metastatic disease cannot be excluded. ACT 112: Negative or not required by law. Electronically signed by: Dat Garcia M.D. 03/28/2022 8:05 AM Cholangiopancreatography MRI 03/29/22 09:09 MRCP CLINICAL HISTORY: Choledocholithiasis seen by CT. COMPARISON STUDY: Abdominal CT dated 03/26/2022. TECHNIQUE: Abdominal MRCP is performed utilizing various T2-weighted sequences in the axial and coronal planes. 3-D reformats are created and assessed. IV contrast was not administered for this examination. The examination is degraded by motion artifact. FINDINGS: There are numerous gallstones within the gallbladder lumen. The gallbladder is distended, and the wall appears thickened. There is trace pericholecystic fluid. There is no intra or extrahepatic biliary ductal dilatation. The common bile duct measures up to 5.5 mm in diameter. There are small filling defects in the distal common bile duct consistent with choledocholithiasis. This was also seen by CT. The pancreatic duct is normal in caliber. There is a small volume of upper abdominal ascites as well as small pleural effusions. A 13.5 cm mass lesion is present in the right lobe of the liver. There is hypertrophy of the left lobe, with a 6 cm left lobe hepatic mass. The kidneys are atrophic and without hydronephrosis. Bilateral renal cysts measure up to 3.8 cm. The unenhanced spleen, adrenal glands, and pancreas are grossly unremarkable. The abdominal aorta is normal in caliber. No bowel obstruction is seen. No destructive bony lesion is identified. Multifocal pulmonary metastatic disease is present at the lung bases. The heart is enlarged. IMPRESSION: 1. Cholelithiasis within a distended and mildly thick-walled gallbladder. Acute cholecystitis is not excluded, and clinical/laboratory correlation will be required. A nuclear hepatobiliary scan could be considered if clinically w arranted. 2. Choledocholithiasis. 3. There is no intra or extrahepatic biliary ductal dilatation. 4. There are large hepatic masses and evidence of multifocal pulmonary metastatic disease. Correlate with the patient's oncological history. 5. Small pleural effusions and small volume perihepatic ascites. Dictated: 03/29/2022 9:21 PM Transcribed: 03/29/2022 9:41 PM Mirian [id number] Electronically signed by: Zhao Ramirez M.D. 03/29/2022 9:50 PM Medications Administered Current Inpatient Medications Allopurinol (Allopurinol 100 Mg Tab) 100 mg PO DAILY [facility] Stop: 04/27/22 08:59 Last Admin: 04/01/22 09:27 Dose: 100 mg Documented by: Apixaban (Apixaban 2.5 Mg Tab) 5 mg PO BID YI Stop: 05/01/22 08:59 Last Admin: 04/01/22 10:13 Dose: 5 mg Documented by: Atenolol (Atenolol 50 Mg Tablet) 100 mg PO BID [facility] Stop: 04/26/22 22:44 Last Admin: 04/01/22 09:27 Dose: 100 mg Documented by: Dextrose (Dextrose 50% 50 Ml Syringe) 25 - 50 ml IV UD PRN; Protocol PRN Reason: Hypoglycemia Protocol Stop: 04/26/22 21:31 Famotidine (Famotidine 20 Mg Tab) 20 mg PO BID PRN PRN Reason: Dyspepsia Stop: 04/29/22 20:59 Glucagon (Glucagon For Inj 1 Mg Vial) 1 mg SQ UD PRN; Protocol PRN Reason: Hypoglycemia Protocol Stop: 04/26/22 21:31 Glucose (Glucose 10 Tabs/Tube) 4 - 8 tabs PO UD PRN; Protocol PRN Reason: Hypoglycemia Protocol Stop: 04/26/22 21:31 Glucose (Glucose 40% Gel 15 Gm Tube) 15 - 30 gm PO UD PRN; Protocol PRN Reason: Hypoglycemia Protocol Stop: 04/26/22 21:31 Heparin Sodium (Porcine) (Heparin 100 Unit/Ml 5ml Flush) 5 ml FLUSH PRN PRN PRN Reason: Flush Stop: 04/27/22 02:13 Piperacillin Sod/Tazobactam (Sod 4.5 gm/ Dextrose) 120 mls @ 30 mls/hr IV Q8H [facility]; Protocol Stop: 04/07/22 07:59 Last Admin: 04/01/22 10:13 Dose: 30 mls/hr Documented by: Insulin Aspart (Insulin Aspart Per Unit) 0 units SC ACHS [facility] Stop: 04/29/22 07:29 Last Admin: 04/01/22 12:10 Dose: 2 units Documented by: Lidocaine (Lidocaine 5% 1 Patch) 1 patch TD QAM [facility] Stop: 04/27/22 08:59 Last Admin: 04/01/22 09:29 Dose: 1 patch Documented by: Melatonin (Melatonin 3 Mg Tab) 3 mg PO HS PRN PRN Reason: Sleep Stop: 04/26/22 21:46 Last Admin: 03/30/22 20:54 Dose: 3 mg Documented by: Miscellaneous (Carbohydrates For Hypoglycemia ) 15 - 30 gm PO UD PRN PRN Reason: Hypoglycemia Protocol Stop: 04/26/22 21:31 Miscellaneous (Remove Lidoderm Patch) 1 ea N/A DAILY@2100 [facility] Stop: 04/27/22 20:59 Last Admin: 03/31/22 20:08 Dose: 1 ea Documented by: Oxycodone HCl (Oxycodone Hcl Ir 5 Mg Tab (Immediate Release)) 5 mg PO Q6H PRN PRN Reason: Pain Stop: 04/10/22 21:52 Last Admin: 04/01/22 09:32 Dose: 5 mg Documented by: Pantoprazole Sodium (Pantoprazole 40 Mg Tab) [facility] [place] Stop: 04/27/22 08:59 Last Admin: 04/01/22 09:27 Dose: 40 mg Documented by: Potassium Phosphate (Pot Phosphate Monobasic W/ Sod Tab) 1 tab PO QID [facility] Stop: 04/27/22 01:49 Last Admin: 04/01/22 11:51 Dose: 1 tab Documented by: Spironolactone (Spironolactone 25 Mg Tab) 25 mg PO QAM [facility] Stop: 04/27/22 08:59 Last Admin: 04/01/22 09:27 Dose: 25 mg Documented by: Resident Activity Tracking Resident Involvement: Resident Care Provided Care Provided: Adult Hospital Medicine
--- NOTE | 2022-04-01 10:50 | Gastroenterology Progress Note ---
Date of Service April 01, 2022 Assessment & Plan (1) Elevated bilirubin: (2) Colorectal carcinoma: (3) Liver metastases: (4) Choledocholithiasis: Plan: This is a 71 y/o male with multiple co-morbids including metastatic colon CA to the liver and lungs, with elevated bilirubin, leukocytosis and MRCP suggesting choledocholithiasis. ERCP yesterday with choledocholithiasis, removed s/p sphincterotomy, also had acute cholangitis, and s/p CBD stent placed. Today fe els about the same. Abd soft, nondistended. Leukocytosis has improved; he is afebrile, VSS. BCx NGTD. - INR 1.7; will give Vit K 10 mg IV stat now to reverse; decrease risk of bleeding - Please hold Eliquis x 3 days - Continue IV ABX; complete 7 day course - Supportive care for other co-morbids - Daily INR, LFTs, CBC - Await BCx final - Await oncology eval - General surgery eval for cholecystectomy, alternatively could consider OP Axios stent if deemed not a surgical candidate - Repeat ERCP 6 weeks for CBD stent removal, possible Axios stent placement - GI will sign off, please call with questions Thank you for allowing us to participate in the care of this patient. Please call with any acute changes, questions or concerns. Please see addendum below with additional recommendation from my supervising physician. Admission and Anticipated Discharge Date Admission Date: March 27, 2022 Supervising Physician Co-Signing Physician Notes I performed a history and physical examination of the patient today, including specifically on physical exam - soft abdomen. I have discussed the patient's management with the advanced practitioner. Please refer to the nurse practitioner's note for the documented findings and plan of care. Repeat ERCP as OP. LFTs may not improve due to Liver metastasis. Recall GI if needed. Subjective Patient seen and examined, chart reviewed. No acute events overnight. Today INR 1.7. No BM; pt passing flatus. Continues with R sided abd discomfort. Tolerating his diet. No n/v, hematemesis, melena, hematochezia, CP, SOB, fever, chills. Review of Systems Review of Systems: All systems reviewed & are unremarkable except as noted in HPI & below Physical Exam Constitutional: WD/WN, vitals as above Eyes: + icterus Respiratory: normal respiratory effort, lungs clear to auscultation Cardiovascular: + tachycardic Gastrointestinal (Abdomen): normal bowel sounds, soft, nontender, no hepatosplenomegaly Skin: no rashes, warm and dry + jaundice Psychiatric: A+Ox3, euthymic affect Results & Data ([facility]) Vital Signs (Past 12 Hours) Vital Signs Temp Pulse Pulse Resp BP Pulse Ox 04/01/22 07:14 36.7 C 110 H 16 129/84 100 04/01/22 03:40 104 H 04/01/22 03:05 36.4 C L 106 H 16 125/80 100 03/31/22 23:25 36.4 C L 112 H 20 120/80 100 Laboratory Results 04/01/22 04/01/22 04/01/22 Range/Units 07:42 07:42 07:42 WBC 12.94 H (4.8-10.8) K/uL RBC 3.91 L (4.7-6.1) M/uL Hgb 10.7 L (14.0-18.0) g/dL Hct 34.2 L (42-52) % MCV 87.5 (80-100) fL MCH 27.4 (25-34) pg MCHC 31.3 L (32-36) g/dL RDW Std Deviation 69.3 H (36.4-46.3) fL RDW Coeff of Yenni 22.6 H (11.5-14.5) % Plt Count 73 L (130-400) K/uL Immature Gran % (Auto) 0.5 % Neut % (Auto) 83.2 % Lymph % (Auto) 10.0 % [place] % (Auto) 5.7 % Eos % (Auto) 0.4 % Baso % (Auto) 0.2 % Neut # (Auto) 10.77 H (1.4-6.5) K/uL Lymph # (Auto) 1.30 (1.2-3.4) K/uL [place] # (Auto) 0.74 H (0.11-0.59) K/uL Eos # (Auto) 0.05 (0-0.5) K/uL Baso # (Auto) 0.02 (0-0.2) K/uL Immature Gran # (Auto) 0.06 H (0.00-0.02) K/uL Platelet Estimate Decreased L (Normal) Polychromasia 1+ Anisocytosis Present PT 17.8 H (9.0-12.0) Seconds INR 1.7 H (0.9-1.1) Sodium 137 (136-145) mmol/L Potassium 3.4 L (3.5-5.1) mmol/L Chloride 102 (98-107) mmol/L Carbon Dioxide 28 (21-32) mmol/L Anion Gap 7 (3-11) BUN 21 (6-23) mg/dl Creatinine 1.00 (0.6-1.4) mg/dl Est Cr Clr Drug Dosing 84.9 ml/min Est GFR ( Amer) 88.6 ml/min Est GFR (Non-Af Amer) 76.5 ml/min BUN/Creatinine Ratio 21.0 H (10-20) Glucose 108 H (70-99(Fasting)) mg/dl POC Glucose (70-99) mg/dl Calcium 8.2 L (8.5-10.1) mg/dl Total Bilirubin 15.7 H (0.2-1.0) mg/dl AST 88 H (13-39) U/L ALT 51 (7-52) U/L Alkaline Phosphatase 579 H (34-104) U/L Total Protein 5.0 L (6.0-8.3) gm/dl Albumin 2.3 L (3.4-5.0) gm/dl Globulin 2.7 (2.5-4.0) gm/dl Albumin/Globulin Ratio 0.9 (0.9-2) 04/01/22 03/31/22 03/31/22 Range/Units 06:35 23:29 19:59 WBC (4.8-10.8) K/uL RBC (4.7-6.1) M/uL Hgb (14.0-18.0) g/dL Hct (42-52) % MCV (80-100) fL MCH (25-34) pg MCHC (32-36) g/dL RDW Std Deviation (36.4-46.3) fL RDW Coeff of Yenni (11.5-14.5) % Plt Count (130-400) K/uL Immature Gran % (Auto) % Neut % (Auto) % Lymph % (Auto) % [place] % (Auto) % Eos % (Auto) % Baso % (Auto) % Neut # (Auto) (1.4-6.5) K/uL Lymph # (Auto) (1.2-3.4) K/uL [place] # (Auto) (0.11-0.59) K/uL Eos # (Auto) (0-0.5) K/uL Baso # (Auto) (0-0.2) K/uL Immature Gran # (Auto) (0.00-0.02) K/uL Platelet Estimate (Normal) Polychromasia Anisocytosis PT (9.0-12.0) Seconds INR (0.9-1.1) Sodium (136-145) mmol/L Potassium (3.5-5.1) mmol/L Chloride (98-107) mmol/L Carbon Dioxide (21-32) mmol/L Anion Gap (3-11) BUN (6-23) mg/dl Creatinine (0.6-1.4) mg/dl Est Cr Clr Drug Dosing ml/min Est GFR ( Amer) ml/min Est GFR (Non-Af Amer) ml/min BUN/Creatinine Ratio (10-20) Glucose (70-99(Fasting)) mg/dl POC Glucose 123 H 120 H 122 H (70-99) mg/dl Calcium (8.5-10.1) mg/dl Total Bilirubin (0.2-1.0) mg/dl AST (13-39) U/L ALT (7-52) U/L Alkaline Phosphatase (34-104) U/L Total Protein (6.0-8.3) gm/dl Albumin (3.4-5.0) gm/dl Globulin (2.5-4.0) gm/dl Albumin/Globulin Ratio (0.9-2) 03/31/22 03/31/22 03/31/22 Range/Units 17:58 17:06 11:15 WBC (4.8-10.8) K/uL RBC (4.7-6.1) M/uL Hgb (14.0-18.0) g/dL Hct (42-52) % MCV (80-100) fL MCH (25-34) pg MCHC (32-36) g/dL RDW Std Deviation (36.4-46.3) fL RDW Coeff of Yenni (11.5-14.5) % Plt Count (130-400) K/uL Immature Gran % (Auto) % Neut % (Auto) % Lymph % (Auto) % [place] % (Auto) % Eos % (Auto) % Baso % (Auto) % Neut # (Auto) (1.4-6.5) K/uL Lymph # (Auto) (1.2-3.4) K/uL [place] # (Auto) (0.11-0.59) K/uL Eos # (Auto) (0-0.5) K/uL Baso # (Auto) (0-0.2) K/uL Immature Gran # (Auto) (0.00-0.02) K/uL Platelet Estimate (Normal) Polychromasia Anisocytosis PT (9.0-12.0) Seconds INR (0.9-1.1) Sodium (136-145) mmol/L Potassium (3.5-5.1) mmol/L Chloride (98-107) mmol/L Carbon Dioxide (21-32) mmol/L Anion Gap (3-11) BUN (6-23) mg/dl Creatinine (0.6-1.4) mg/dl Est Cr Clr Drug Dosing ml/min Est GFR ( Amer) ml/min Est GFR (Non-Af Amer) ml/min BUN/Creatinine Ratio (10-20) Glucose (70-99(Fasting)) mg/dl POC Glucose 130 H 107 H 122 H (70-99) mg/dl Calcium (8.5-10.1) mg/dl Total Bilirubin (0.2-1.0) mg/dl AST (13-39) U/L ALT (7-52) U/L Alkaline Phosphatase (34-104) U/L Total Protein (6.0-8.3) gm/dl Albumin (3.4-5.0) gm/dl Globulin (2.5-4.0) gm/dl Albumin/Globulin Ratio (0.9-2) Diagnostic Findings ERCP 03/31/22: Impression: - Choledocholithiasis was found. Complete removal was accomplished by biliary sphincterotomy and balloon extraction. - Acute Cholangitis. - One plastic biliary stent was placed into the common bile duct. Recommendation: - [facility] care. - Repeat ERCP in 6 weeks to remove stent. - Surgery consult to discuss cholecystectomy, would consider Axios stent drainage as OP if not a surgical candidate. - Complete a 7 days course of ABx. - Recall GI if needed. EGD 03/31/22: - Normal esophagus - Normal stomach - Normal duodenal bulb and second part of the duodenum - No specimens collected
[2022-04-01] MEDS ORDERED: metroNIDAZOLE 500 MG TAB PO SCH (14:00)
--- NOTE | 2022-04-01 15:10 | Surgery Progress Note ---
Date of Service April 01, 2022 Assessment & Plan (1) Choledocholithiasis: Plan: Given metastatic disease to liver, chemo, and other comorbidities, do not feel he is a good surgical candidate. Duct is cleared with stent, which is main issue. Would consider axiox stent with Dr. Bob as outpatient. surgery will sign off, call with questions or concerns. (2) Cholelithiasis: (3) Colorectal carcinoma: (4) Obesity: (5) Liver metastases: (6) Lung metastases: (7) Hypertension: (8) Atrial fibrillation: (9) Hyperlipidemia: (10) Obstructive sleep apnea: (11) Type 2 diabetes mellitus: Admission and Anticipated Discharge Date Admission Date: March 27, 2022 Subjective 71 y/o male with metastatic colorectal cancer on chemo and afib on eliquis, underwent ERCP yesterday for choledocholithiasis. Feeling better. Physical Exam Constitutional: WD/WN, vitals as above + obese Gastrointestinal (Abdomen): normal bowel sounds, soft, nontender, no hepatosplenomegaly Skin: + jaundice Results & Data ([place]) Vital Signs (Past 12 Hours) Vital Signs Temp Pulse Pulse Resp BP Pulse Ox 04/01/22 11:55 36.7 C 102 H 16 115/65 97 04/01/22 07:14 36.7 C 110 H 16 129/84 100 04/01/22 03:40 104 H Laboratory Results Laboratory Results - last 24 hr 03/31/22 03/31/22 03/31/22 17:06 17:58 19:59 WBC RBC Hgb Hct MCV MCH MCHC RDW Std Deviation RDW Coeff of Yenni Plt Count Immature Gran % (Auto) Neut % (Auto) Lymph % (Auto) [place] % (Auto) Eos % (Auto) Baso % (Auto) Neut # (Auto) Lymph # (Auto) [place] # (Auto) Eos # (Auto) Baso # (Auto) Immature Gran # (Auto) Platelet Estimate Polychromasia Anisocytosis PT INR Sodium Potassium Chloride Carbon Dioxide Anion Gap BUN Creatinine Est Cr Clr Drug Dosing Est GFR ( Amer) Est GFR (Non-Af Amer) BUN/Creatinine Ratio Glucose POC Glucose 107 H 130 H 122 H Calcium Total Bilirubin AST ALT Alkaline Phosphatase Total Protein Albumin Globulin Albumin/Globulin Ratio 06/29/22 06/30/22 06/30/22 23:29 06:35 07:42 WBC RBC Hgb Hct MCV MCH MCHC RDW Std Deviation RDW Coeff of Yenni Plt Count Immature Gran % (Auto) Neut % (Auto) Lymph % (Auto) [place] % (Auto) Eos % (Auto) Baso % (Auto) Neut # (Auto) Lymph # (Auto) [place] # (Auto) Eos # (Auto) Baso # (Auto) Immature Gran # (Auto) Platelet Estimate Polychromasia Anisocytosis PT 17.8 H INR 1.7 H Sodium Potassium Chloride Carbon Dioxide Anion Gap BUN Creatinine Est Cr Clr Drug Dosing Est GFR ( Amer) Est GFR (Non-Af Amer) BUN/Creatinine Ratio Glucose POC Glucose 120 H 123 H Calcium Total Bilirubin AST ALT Alkaline Phosphatase Total Protein Albumin Globulin Albumin/Globulin Ratio 04/01/22 04/01/22 04/01/22 07:42 07:42 11:38 WBC 12.94 H RBC 3.91 L Hgb 10.7 L Hct 34.2 L MCV 87.5 MCH 27.4 MCHC 31.3 L RDW Std Deviation 69.3 H RDW Coeff of Yenni 22.6 H Plt Count 73 L Immature Gran % (Auto) 0.5 Neut % (Auto) 83.2 Lymph % (Auto) 10.0 [place] % (Auto) 5.7 Eos % (Auto) 0.4 Baso % (Auto) 0.2 Neut # (Auto) 10.77 H Lymph # (Auto) 1.30 [place] # (Auto) 0.74 H Eos # (Auto) 0.05 Baso # (Auto) 0.02 Immature Gran # (Auto) 0.06 H Platelet Estimate Decreased L Polychromasia 1+ Anisocytosis Present PT INR Sodium 137 Potassium 3.4 L Chloride 102 Carbon Dioxide 28 Anion Gap 7 BUN 21 Creatinine 1.00 Est Cr Clr Drug Dosing 84.9 Est GFR ( Amer) 88.6 Est GFR (Non-Af Amer) 76.5 BUN/Creatinine Ratio 21.0 H Glucose 108 H POC Glucose 117 H Calcium 8.2 L Total Bilirubin 15.7 H AST 88 H ALT 51 Alkaline Phosphatase 579 H Total Protein 5.0 L Albumin 2.3 L Globulin 2.7 Albumin/Globulin Ratio 0.9 PG Care Time/CCT Total # of Minutes Spent Total Time Spent with Patient: Total time spent is greater than 50% in coordination of care (as documented) at patient's floor/unit and/or counseling patient: Coding Level of Care Code 80220 Inpt Consult Level 2 Diagnoses Choledocholithiasis K80.50 Cholelithiasis K80.20 Colorectal carcinoma C19 Obesity E66.9 Liver metastases C78.7 Lung metastases C78.00 Hypertension I10 Atrial fibrillation I48.91 Hyperlipidemia E78.5 Obstructive sleep apnea G47.33 Type 2 diabetes mellitus E11.9
--- NOTE | 2022-04-01 16:13 | Discharge Summary ---
Date of Service April 01, 2022 Admission HPI Per Admitting Provider 71yo male with a history of colorectal carcinoma with mets to the lung and liver (chemo q other week), atrial fibrillation (on eliquis), HTN, HLD, T2DM, and FERNANDO presents as a transfer from [facility] with concern for choledocholithiasis after originally presenting to OSH with right-sided rib pain due to a mechanical fall. Patient was sitting at the edge of his bed yesterday when he slid down and fell on his right side. No head trauma or LOC. Patient has had right-sided rib pain since. Pain is worse with movement and does not radiate. Some mild pain with inspiration. Also endorses some mild upper abdominal pain which is not new. Denies other symptoms at this time including fever, chills, headache, changes in vision, CP, SOB, nausea, vomiting, constipation, diarrhea, lightheadedness, dizziness, numbness, tingling, or weakness. Patient originally presented to [facility], where patient's workup was notable for Tbili of 9.2, AlkP 462, WBC 15, and lactate 2.6. Patient was transferred to [facility] for GI consult and possible MRCP after imaging was suspicious for choledocholithiasis. Patient was placed on vanc/zosyn prior to transfer. CT c-spine: no acute fracture US abdomen: heterogenous liver with innumerable hyperechoic masses consistent with mets CT a/p: extensive hepatic metastatic disease, cholelithiasis CT chest: extensive bilateral pulmonary mets, trace BL pleural effusions, scattered ground glass opacities in right perihilar region and right upper lobe which may be related to inflammatory pneumonitis and/or infectious pneumonia CT head: no acute intracranial pathology CXR: diffuse bilateral interstitial and alveolar airspace opacities Patient's current malignancy is managed by an oncologist at [facility]. Admission Exam Per Admitting Provider Constitutional: well-appearing, no acute distress HEENT: NCAT, mild scleral icterus appreciated CV: tachycardic, irregular rhythm, no murmur appreciated, extremities well- perfused, 1+ pitting edema Resp: CTABL, no wheezes/rales/rhonchi appreciated, no increased work of breathing GI: soft, nondistended, mild-moderate tenderness of the RUQ, LUQ, and epigastrium, no RLQ or LLQ tenderness, BS present MSK: no gross deformities appreciated Skin: warm, dry, no rash appreciated Neuro: alert, oriented, no focal neurologic deficit appreciated Principal Diagnosis Choledocholithiasis with Acute Cholangitis Discharge Exam Constitutional WD/WN, vitals as above Eyes normal visual leiva by confrontation, + scleral abnormality (icteric), PERRL and EOM intact bilaterally ENMT external ear and nose normal, oropharynx normal Neck trachea midline, no thyromegaly Respiratory normal respiratory effort, lungs clear to auscultation Cardiovascular Rate/Rhythm: + irregularly irregular Heart Sounds: normal S1 and normal S2 Extremities: + edema (+1 pitting edema b/l ankles with chronic venous stasis) Chest (Breasts) Chest: + vascular access device or port (on left) Gastrointestinal (Abdomen) Inspection/Auscultation: abdomen normal to inspection and normal bowel sounds Percussion/Palpation: + abdomen tender (at RUQ and epigastric) and abdomen soft; no ascites Skin no rashes, warm and dry Neurologic CN's II-XI intact bilaterally Discharge Data Allergies Allergy/AdvReac Type Severity Reaction Status Date / Time No Known Allergies Allergy Verified 03/27/22 22:32 Consultations 03/27/22 21:47 Consult Gastroenterology Routine 03/28/22 00:34 Consult Health Information Management Routine 03/28/22 07:00 Consult Oncology Routine 03/30/22 08:58 Consult Gastroenterology Routine 03/31/22 17:16 Consult General Surgery Routine Procedures Performed Operation Date: 03/31/22 07:00 Actual Procedures p Endoscopic retrograde cholangiopancreatography. - Lary Almazan MD Ordered Studies 03/28/22 04:17 CT angio chest PE protocol Urgent 03/29/22 09:09 MR MRCP Routine 03/31/22 [place] ERCP biliary ductal Routine Hospital Course (1) Rib pain on right side: 71 yo male with a history of colorectal carcinoma with mets to the lung and liver (chemo q other week), atrial fibrillation (on Eliquis), HTN, HLD, T2DM, and FERNANDO presents as a transfer from [facility] with concern for choledocholithiasis after originally presenting to OSH with right- sided rib pain due to a mechanical fall. -Eliquis held post ERCP, may resume 04/03 -started Metronidazole 500mg TID for 4 days -started Ciprofloxacin 500mg BID for 4 days -Requires ERCP in 6 weeks for stent removal and possible Axios stent placement Severe leukocytosis Discussed with oncology, likely leukemoid reaction. Numbers improved. Colorectal carcinoma with liver and lung mets Patient noted with hyperbilirubinemia to 9.2 and Alk Phos of 462 at OSH, in the setting of known liver mets, transferred to [facility] for GI consult and possible MRCP d/t concern for choledocholithiasis. CT a/p (performed and read at OSH) notable for extensive hepatic metastatic disease, cholelithiasis. Patient receives chemotherapy q2wks (last done Tuesday) managed by a [facility] oncologist. Choledocholithiasis with Hyperbilirubinemia, transaminitis Mild-moderate upper abdominal tenderness on exam. Patient started on on vanc/zosyn, later switched to cipro 500mg BID+flagyl 500 TID for 5 days total post ERCP (end 02/03) per guidelines for acute cholangitis. CT a/p (performed and read at OSH) notable for extensive hepatic metastatic disease, cholelithiasis. On arrival to [facility], labs notable for WBC 73.7, Hgb 9.7, INR 1.7, Ca 7.8 (ionized pending), phos 1.6, Tbili 9.8, AST 57, AlkPhos 392, albumin 2.7. Lactate level unable to be performed due to lab interference from hyperbilirubinemia. Blood cultures negative 48hr. MRCP:cholelithiasis with choledocholithiasis. GI consulted, ERCP 03/31 with stone removal and stent placement, noted acute cholangitis on ERCP. Noted INR 1.7; gave Vit K 10 mg IV to decrease risk of bleeding, recommend hold Eliquis x 3 days. Repeat ERCP 6 weeks for CBD stent removal, possible Axios stent placement if not surgical candidate. Surgery consulted, patient high risk for cholecystectomy due to cancer and chemo, suggest axios stent placement instead Transportation Difficulties Contacted [facility] to see if they can perform followup 6 week ERCP with possible stent placement Rib pain secondary to mechanical fall Patient with mild right-sided chest wall tenderness after a mechanical fall at home (03/26). No acute fracture on CXR. Pain control with patient's home oxycodone 5mg q6h prn; avoid Tylenol d/t hepatic pathology. Incentive spirometry ordered, lidocaine patch, ibuprofen ordered Atrial fibrillation Patient tachycardic to the 110s on admission. EKG showed atrial fibrillation with RVR. Patient given home atenolol with additional 100mg atenolol, digoxin 250mcg on admit to control heart rate. Echo normal EF, moderate concentric LVH, RA LA mildly dilated, elevated right systolic pressure. High sensitivity Troponin 53.8 --> 49.4, initially placed on heparin drip, transitioned to home Eliquis. Eliquis held for ERCP, may resume in 3 days on 04/03. Patient given vitain K for elevated INR, may recheck in outpatient setting. Continue home atenolol. Hypophosphatemia- resolved Phosphate 1.6 on admission, repleted Severe malnutrition Nutrition consult placed = continue PO as tolerated, add boost, replete electrolytes Anxiety - resolved Received 1mg Ativan without improvement, improved with morphine HTN BP well-controlled on admission, may resume home lasix quinapril and spironolactone in outpatient DM2 HbA1c 6. Patient may resume home regime Metformin in outpatient HLD: not on a statin; lipid profile wnl FERNANDO: not on CPAP/BiPAP at home Total Time Total Time Spent Total Time Spent (In Minutes): see attending attestation Discharge Plan Discharge Items Patient Disposition: Home - Home Health Services Reason For Visit: CHOLELITHIASIS Discharge Diagnosis: Choledocholithiasis with Acute Cholangitis Activity: Resume your previous activity Non-emergency contact: Primary Care Provider Call non-emergency contact if: you have any medication questions, your symptoms worsen and you have a fever Follow-up/Referrals: Outside Location [Outside] (Please arrange follow up with [facility], phone number , . He requires ERCP in 6 weeks for stent removal and possible Axios stent placement.) PCP,NO [Physician] - Diet: Regular Addtl Attending Provider Instructions: You were admitted to the hospital for inflammation of your bile duct due to gallstones. You were treated with antibiotics, and your white blood cell count has gradually decreased. Your case was reviewed with the oncologist, who agrees that your elevated white blood cell count is more likely due to your cancer causing your immune system to overreact, you are unlikely to have leukemia. You were seen by gastroenterology, who removed the stone from your bile duct and placed a stent to ensure your bile duct still functions. You were evaluated by surgery, who have determined a removal of your gallbladder to prevent further gallstones would be too high risk given your cancer and chemotherapy. You have follow up with [facility] on 04/22, we will arrange for further follow up with [facility] for your stent removal and possible replacement in 6 weeks. A discharge summary will be sent to your primary care physician to ensure continuity of care. Please bring this discharge summary with you to your next office appointment so that your provider can review it at that time. Follow-up appointments: Make a follow-up appointment with your PCP within the next week. It is very important that you follow up with them shortly after discharge from the hospital. We have requested a follow-up appointment with [facility]. Please call their office at if you do not hear from them. Keep all your follow-up appointments as already scheduled. If you cannot make an appointment, notify your provider. Medications: Your medication list has been reviewed and reconciled upon discharge to ensure accuracy and continuity of care. An updated list of all your medications is included with your hospital discharge paperwork. Please review this list closely, and make note of any changes. * We sent a new medication called Ciprofloxacin to your pharmacy. Take Ciprofloxacin 500mg one tablet twice a day for 4 days. * We sent a new medication called Metronidazole to your pharmacy. Take Metronidazole 500mg one tablet three times a day for 4 days. * Please stop taking your Eliquis until Tuesday, 02/01, afterwhich you may resume Take your medications as instructed; do not skip a dose of your medicines. Make sure all of your doctors know every medicine you are taking (including ove [id number] medicines, vitamins, and supplements). Call your primary care provider before taking any new medicines (including [id number] medicines, vitamins, and supplements), because some of these may interact with your current medications, or may make your symptoms worse. Tell your primary care provider if you cannot afford your medications. CONTACT YOUR PRIMARY CARE PROVIDER if you experience any of the following: worsening abdominal pain, fever, chills Difficulty breathing Difficulty following your treatment plan, or difficulty taking medications CALL 911 OR GO TO THE EMERGENCY DEPARTMENT if you experience any of the following: Sudden, severe abdominal pain or nausea/vomiting Severe chest pain, or chest pain that radiates (moves) to your jaw or arm Sudden, severe shortness of breath or difficulty breathing Thank you for allowing us to participate in your care. Pending Studies at Discharge: No Stand-Alone Forms: My [facility], Smoking Cessation Medications and DC Order Prescriptions: New ciprofloxacin HCl 500 mg Tablet 500 mg PO BID 4 Days Qty: 8 RF: 0 metronidazole 500 mg Tablet 500 mg PO TID 4 Days Qty: 12 RF: 0 Continued furosemide 40 mg tablet RF: 0 atenolol 100 mg tablet RF: 0 alendronate 70 mg tablet PO RF: 0 allopurinol 100 mg tablet RF: 0 esomeprazole magnesium 40 mg capsule,delayed release(DR/EC) RF: 0 quinapril 20 mg tablet RF: 0 oxycodone 5 mg tablet RF: 0 spironolactone 25 mg tablet RF: 0 metformin 500 mg tablet extended release 24 hr PO RF: 0 Changed Eliquis 5 mg tablet 5 mg PO BID Qty: 0 RF: 0 Discharge Orders: Discharge Order (Routine); Ordered 04/01/22 Ordered By: Shefali Cruz/Other Patient Handouts: Managing Type 2 Diabetes Admission Data Admit Date/Time: 03/27/22 19:23 Attending Provider: Aminta Broussard Admit Provider: Mina Dunn Primary Care Provider: Zachary Dunn Other Providers: Mina Dunn ; Keshawn Mendosa ; [facility] ; Terry Wei ; Lary Almazan ; Naveen Dunn ; Alexis Garza ; Cathy Quintero ; Adry Cole ; Jack Myrick ; Chuy Mcmillan ; Alyssia Coppola ; Montse Khoury ; Lopez Leigh Jr ; Christiano Hays ; Micky Fischer ; Sveta York ; Irene Bonilla Other Interventions: Discharge Summary Assessment (RN) Last Done: 04/01/22 16:33 Supervising Physician Co-Signing Physician Notes Resident Physician Supervision Note: I independently interviewed and examined the patient and verified the jane history and physical, reviewed labs and image studies and agree with resident Dr. Jaimes findings and care plan. Resident Activity Tracking Resident Involvement: Resident Care Provided Care Provided: [facility]
[2022-04-01] MEDS ORDERED: CIPROFLOXACIN 500 MG TAB PO SCH (21:00)
== END 2022-04-01 17:23 | disposition home health service (06) | DRG 444 ==
LOC: 2W 19:23 → SUATTDRO 19:23 → INTOOBSV 21:53 → 2S 03-28 08:08
DX: J44.0 Chronic obstructive pulmonary disease with (acute) lower respiratory infection; E11.9 Type 2 diabetes mellitus without complications; J18.9 Pneumonia, unspecified organism; R17 Unspecified jaundice; Z66 Do not resuscitate; Z79.84 Long term (current) use of oral hypoglycemic drugs; C78.7 Secondary malignant neoplasm of liver and intrahepatic bile duct; C78.02 Secondary malignant neoplasm of left lung; G47.33 Obstructive sleep apnea (adult) (pediatric); E78.5 Hyperlipidemia, unspecified; Y92.89 Other specified places as the place of occurrence of the external cause; C19 Malignant neoplasm of rectosigmoid junction; K80.70 Calculus of gallbladder and bile duct without cholecystitis without obstruction; R18.8 Other ascites; I48.91 Unspecified atrial fibrillation; W19.XXXA Unspecified fall, initial encounter; Z79.01 Long term (current) use of anticoagulants; D84.9 Immunodeficiency, unspecified; E43 Unspecified severe protein-calorie malnutrition; C78.01 Secondary malignant neoplasm of right lung; K80.30 Calculus of bile duct with cholangitis, unspecified, without obstruction; E80.6 Other disorders of bilirubin metabolism; E83.39 Other disorders of phosphorus metabolism; R07.81 Pleurodynia; F41.9 Anxiety disorder, unspecified; I10 Essential (primary) hypertension